=== PATIENT | male | born 1980 | race Caucasian/White ===

== ENCOUNTER 2021-04-25 12:02 | Emergency (ER) | payer OTHER, SELFPAY ==
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
[2021-04-25 12:08] VITALS: BP 127/81; PULSE 73; RESP 18; TEMP 36.8; O2SAT 99; BMI 21.6
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
[2021-04-25] MEDS: oxyCODONE HCl Immed Release 5 MG TABLET PO (13:46)
== END 2021-04-25 14:13 | disposition home or self-care (01) ==
PROVIDERS: Emergency Provider Emergency Medicine Emergency Medical Services; PCP Physician Assistant
DX: S43.102A Unspecified dislocation of left acromioclavicular joint, initial encounter (principal); M25.512 Pain in left shoulder; V27.4XXA Motorcycle driver injured in collision with fixed or stationary object in traffic accident, initial encounter; Y93.9 Activity, unspecified; Y92.410 Unspecified street and highway as the place of occurrence of the external cause; Y99.9 Unspecified external cause status
CPT/HCPCS: 73030; 99283; 99284

== ENCOUNTER → 2021-05-02 10:24 | Outpatient (BNVA) | payer OTHER, SELFPAY | PROVIDERS: Visit Provider Physician Assistant ==

== ENCOUNTER → 2021-06-19 11:25 | Outpatient (BNVA) | payer OTHER, SELFPAY | PROVIDERS: PCP Internal Medicine; Visit Provider Physician Assistant ==

== ENCOUNTER 2021-06-24 14:00 | Outpatient (RCR) | payer OTHER, SELFPAY ==
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
--- NOTE | 2021-07-11 15:50 | MHC.PT.DC ---
[facility] [place] Office [place] Office [place] Office [address] Ladi Castillo [address] [phone] F: [phone] F: [phone] F: [phone] F: [phone] Physical Therapy Discharge Report Diagnosis: dislocation of L acromioclavicular Date of Surgery: n/a Date of Evaluation: 05/13/21 Date of Discharge: 07/11/21 Treatments to Date: 11 Cancellations to Date: 3 No Shows to Date: 1 Discharge Status: Visit Non-compliance Discharge Summary: Pt no showed and cancelled his final 2 appointments. He has not reached out in almost 3 weeks therefore pt status unknown at this time and skilled PT is no longer indicated. Electronically signed by: Frances Ward, PT, DPT, ATC Please sign and return to therapist. Thank you for your referral.
== END 2021-07-11 15:51 | disposition home or self-care (01) ==
LOC: HO.PT 14:00
PROVIDERS: Visit Provider Physician Assistant
DX: S43.102D Unspecified dislocation of left acromioclavicular joint, subsequent encounter (principal)
CPT/HCPCS: 97110; 97140; 97161; 97530

== ENCOUNTER 2021-07-16 13:35 | Outpatient (REF) | payer OTHER, SELFPAY | END 2021-07-16 13:36 | disposition home or self-care (01) | LOC: HO.LAB 13:35 | PROVIDERS: Visit Provider Internal Medicine | DX: Z20.822 Contact with and (suspected) exposure to COVID-19 (principal) | CPT/HCPCS: C9803; U0003; U0005 ==

== ENCOUNTER 2021-07-25 13:36 | Emergency (ER) | payer OTHER, SELFPAY ==
[2021-07-25 14:35] VITALS: BP 119/77; PULSE 84; RESP 18; TEMP 36.6; O2SAT 99; BMI 21.0
[2021-07-25 19:52] LABS: Appearance Urine CLEAR; Color Urine YELLOW; Glucose Urine UA NEG (NEG); Leukocyte Esterase Urine NEG (NEG); Nitrite Urine NEG (NEG); Specific Gravity - Urine 1.025 (1.005-1.025); UACC Culture Trigger NO; Urine Blood 1+ (NEG); Urine Ketones 5 MG/DL (NEG); Urine Protein NEG (NEG-TRACE)
--- NOTE | 2021-07-25 19:58 | ECG_ITS ---
Test Reason : DEHYDRATION Blood Pressure : / mmHG Vent. Rate : 083 BPM Atrial Rate : 083 BPM P-R Int : 146 ms QRS Dur : 092 ms QT Int : 328 ms P-R-T Axes : 062 050 053 degrees QTc Int : 385 ms Normal sinus rhythm Minimal voltage criteria for LVH, may be normal variant ( Sokolow-Brito ) ST & T wave abnormality, consider lateral ischemia Abnormal ECG No previous ECGs available Referred By: Generic ED Physician Electronically Signed By:Cal Webb
--- NOTE | 2021-07-25 20:06 | ED_ITS ---
HPI - General Adult General Chief complaint: General Medical Stated complaint: DEHYDRATION Time Seen by Provider: 07/25/21 20:07 Source: patient Mode of arrival: ambulatory Limitations: no limitations History of Present Illness HPI narrative: 41-year-old male with COVID positive test results presents for dark urine and dehydration. Onset (ago): day(s) Radiation: non-radiation Severity: mild Severity scale (1-10): 4 Relieving factors: none Associated symptoms: cough, fever/chills, headaches, loss of appetite and malaise Treatments prior to arrival: none Related Data Previous Rx's Medication Instructions Recorded cyclobenzaprine 10 mg tablet 10 mg PO TID PRN #10 tab 04/25/21 oxycodone 5 mg tablet 5 mg PO Q6H PRN #10 tab 04/25/21 Allergies Allergy/AdvReac Type Severity Reaction Status Date / Time No Known Allergies Allergy Unverified 05/09/21 14:28 Review of Systems Review of Systems: Constitutional: positive Fever, positive Chills, positive fatigue, positive Malaise ENT/Mouth: positive sore throat, positive runny nose Eyes: No Discharge Cardiovascular: No Chest Pain, No SOB Respiratory: No Cough, No Sputum, No Wheezing, No Smoke Exposure, No Dyspnea Gastrointestinal: No Nausea, No Vomiting, No Diarrhea Genitourinary: no irregular bleeding, No Dysuria, No Urinary Frequency, No Hematuria, No Urinary Incontinence, No Urgency, No Flank Pain, Musculoskeletal: positive Myalgia Skin: No rash Neuro: Positive Headache Yes all other systems are reviewed and are negative PMFSH Past Medical History Attestation statement: The following information was validated with the patient. 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 Oriented X3. No acute distress. Eyes: Pupils equal, round and reactive to light. EOMI. Sclera nonicteric. ENT: Pharynx normal. Neck: Normal inspection. Neck supple. CVS: Normal heart rate and rhythm. Pulses normal. Respiratory: No respiratory distress. Breath sounds normal. Abdomen: Soft and nontender. Skin: Skin warm and dry. Normal skin color. Normal skin turgor. Extremities: No lower extremity edema. Gait well-balanced well coordinated. Neuro: No motor deficit. No sensory deficit. Cranial nerves 2-12 intact. Course Course Course Narrative: 41-year-old male COVID positive presents for dehydration and dark urine. Will order labs and resuscitate with fluids. Patient is alert oriented x4, appears nontoxic, speaking in complete sentences, even unlabored respirations, O2 saturation 99% on room air. Patient states to feel better after fluid resuscitation. Will discharge home with instructions for supportive measures. Patient verbalized understanding of and agrees to plan of care. Medical Decision Making MDM Narrative Medical decision making narrative: Dehydration, COVID-19, rhabdo Medical Records Medical records reviewed: Yes I reviewed the patient's medical records. Lab Data Lab results reviewed: Yes I reviewed the patient's lab results. Result diagrams: 07/25/21 20:42 07/25/21 20:42 Labs: Lab Results 07/25/21 07/25/21 07/25/21 Range/Units 19:44 20:42 20:42 WBC 3.6 L (4.8-10.8) X10*3/uL RBC 5.73 (4.60-5.80) X10*6/uL Hgb 16.0 (14.0-18.0) g/dl Hct 46.4 (42.0-52.0) % MCV 81.0 (80.0-98.0) fL MCH 27.9 (27.0-33.0) pg MCHC 34.5 (31.0-36.0) g/dl RDW 12.1 (11.0-16.0) % Plt Count 162 (160-400) X10*3/uL MPV 10.6 (9.4-12.4) fL Immature Gran % (Auto) 0.6 H (0.0-0.4) % Neut % (Auto) 61.0 (45-73) % Lymph % (Auto) 22.7 (20-40) % [place] % (Auto) 15.1 H (2-11) % Eos % (Auto) 0.3 (0-4) % Baso % (Auto) 0.3 (0-2) % Lymph # (Auto) 0.8 L (1.2-4.9) X10*3/uL [place] # (Auto) 0.5 (0.1-1.2) X10*3/uL Eos # (Auto) 0.0 (0.0-0.4) X10*3/uL Baso # (Auto) 0.0 (0.0-0.2) X10*3/uL Abs Immat Gran (auto) 0.02 (0.00-0.03) X10*3/uL Absolute Neuts (auto) 2.2 (2.0-8.3) x10*3/uL Absolute Nucleated RBC 0.000 (0.0-0.012) X10*3/uL Nucleated RBC % (auto) 0.0 (0.0-0.2) /100WBC Sodium 136 (135-145) mmol/L Potassium 3.8 (3.3-5.1) mmol/L Chloride 103 (96-108) mmol/L Carbon Dioxide 26 (22-29) mmol/L Anion Gap 11 L (12-20) BUN 11 (9-16) mg/dL Creatinine 0.84 (0.5-1.4) mg/dL Estim Creat Clear Calc 120.5 Estimated GFR > 60 Random Glucose 96 (60-115) mg/dL Calcium 8.6 (8.4-10.2) mg/dL Total Bilirubin 0.3 (0.0-1.0) mg/dL AST 21 (5-37) U/L ALT 29 (0-40) U/L Alkaline Phosphatase 137 H (39-117) U/L Total Creatine Kinase 58 (38-174) U/L Total Protein 6.5 (6.5-8.0) g/dL Albumin 4.0 (3.5-5.0) g/dL Urine Color YELLOW Urine Appearance CLEAR Urine pH 6.0 (5.0-8.0) Ur Specific [place] 1.025 (1.005-1.025) Urine Protein NEG (NEG-TRACE) MG/DL Urine Glucose (UA) NEG (NEG) MG/DL Urine Ketones 5 (NEG) MG/DL Urine Blood 1+ H (NEG) Urine Nitrite NEG (NEG) Ur Leukocyte Esterase NEG (NEG) Urine RBC 0-2 (0) /HPF Urine WBC 0 (0-4) /HPF Ur Squamous Epith Cells TRACE /LPF Urine Bacteria TRACE /LPF Influenza Type A (PCR) (Negative) Influenza Type B (PCR) (Negative) RSV RNA Qual (PCR) (Negative) SARS-CoV-2 RNA (RT-PCR) (Negative) 07/25/21 07/25/21 Range/Units 20:42 20:42 WBC (4.8-10.8) X10*3/uL RBC (4.60-5.80) X10*6/uL Hgb (14.0-18.0) g/dl Hct (42.0-52.0) % MCV (80.0-98.0) fL MCH (27.0-33.0) pg MCHC (31.0-36.0) g/dl RDW (11.0-16.0) % Plt Count (160-400) X10*3/uL MPV (9.4-12.4) fL Immature Gran % (Auto) (0.0-0.4) % Neut % (Auto) (45-73) % Lymph % (Auto) (20-40) % [place] % (Auto) (2-11) % Eos % (Auto) (0-4) % Baso % (Auto) (0-2) % Lymph # (Auto) (1.2-4.9) X10*3/uL [place] # (Auto) (0.1-1.2) X10*3/uL Eos # (Auto) (0.0-0.4) X10*3/uL Baso # (Auto) (0.0-0.2) X10*3/uL Abs Immat Gran (auto) (0.00-0.03) X10*3/uL Absolute Neuts (auto) (2.0-8.3) x10*3/uL Absolute Nucleated RBC (0.0-0.012) X10*3/uL Nucleated RBC % (auto) (0.0-0.2) /100WBC Sodium (135-145) mmol/L Potassium (3.3-5.1) mmol/L Chloride (96-108) mmol/L Carbon Dioxide (22-29) mmol/L Anion Gap (12-20) BUN (9-16) mg/dL Creatinine (0.5-1.4) mg/dL Estim Creat Clear Calc Estimated GFR Random Glucose (60-115) mg/dL Calcium (8.4-10.2) mg/dL Total Bilirubin (0.0-1.0) mg/dL AST (5-37) U/L ALT (0-40) U/L Alkaline Phosphatase (39-117) U/L Total Creatine Kinase Cancelled (38-174) U/L Total Protein (6.5-8.0) g/dL Albumin (3.5-5.0) g/dL Urine Color Urine Appearance Urine pH (5.0-8.0) Ur Specific [place] (1.005-1.025) Urine Protein (NEG-TRACE) MG/DL Urine Glucose (UA) (NEG) MG/DL Urine Ketones (NEG) MG/DL Urine Blood (NEG) Urine Nitrite (NEG) Ur Leukocyte Esterase (NEG) Urine RBC (0) /HPF Urine WBC (0-4) /HPF Ur Squamous Epith Cells /LPF Urine Bacteria /LPF Influenza Type A (PCR) NEGATIVE (Negative) Influenza Type B (PCR) NEGATIVE (Negative) RSV RNA Qual (PCR) NEGATIVE (Negative) SARS-CoV-2 RNA (RT-PCR) POSITIVE A (Negative) ECG Data Attestation: I personally reviewed and interpreted this ECG as follows: Prior ECG tracings: available for review Interpretation: Vent. rate 83 BPM DE interval 146 ms QRS duration 92 ms QT/QTc 328/385 ms P-R-T axes 62 50 53 Normal sinus rhythm Minimal voltage criteria for LVH, may be normal variant ( Sokolow-Brito ) ST & T wave abnormality, consider lateral ischemia Abnormal ECG No previous ECGs available 25-JUL-2021 20:21:35 Discharge Plan Discharge Clinical Impression: Acute dehydration, COVID-19 Patient Disposition: Home, Self-Care Instructions: Covid-19 Viral Syndrome and Novel Coronavirus (ED) Hey/Ath, Dehydration (ED), COVID-19 (Coronavirus Disease 2019) (ED) Additional Instructions: Your evaluated for symptoms consistent with COVID-19. We gave you 1 L of fluids. Please encourage fluids Maintain social isolation for state and Federal guidelines. you are COVID-19 positive. Thank you for choosing this emergency department for evaluation. Please follow-up with primary care physician as needed. Return to the emergency department for any new, concerning, or worsening symptoms. Prescriptions: No Action cyclobenzaprine 10 mg tablet 10 mg PO TID PRN (Reason: muscle spasm) Qty: 10 RF: 0 oxycodone 5 mg tablet 5 mg PO Q6H PRN (Reason: pain) Qty: 10 RF: 0 Stand Alone Forms: Work/School Release Interventions: ED Discharge Assessment Last Done: 07/25/21 23:34 Discharge Date/Time: 07/25/21 23:35
[2021-07-25 20:13] LABS: Bacteria Urine TRACE /LPF; RBC Urine 0-2 /HPF (0); Squamous Epithelial Cell Urine TRACE /LPF; WBC Urine 0 /HPF (0-4)
[2021-07-25 20:47] LABS: MANUAL DIFF FLAG NO
[2021-07-25 20:48] LABS: Basophils Percent Auto 0.3 % (0-2); Eosinophils Percent Auto 0.3 % (0-4); Hematocrit 46.4 % (42.0-52.0); Imm Gran Abs Auto 0.02 X10*3/uL (0.00-0.03); Imm Gran Pct Auto 0.6 % (0.0-0.4); Lymphocytes Absolute Auto 0.8 X10*3/uL (1.2-4.9); Lymphocytes Percent Auto 22.7 % (20-40); Mean Corpuscular HGB Conc 34.5 g/dl (31.0-36.0); Mean Corpuscular Hemoglobin 27.9 pg (27.0-33.0); Mean Platelet Volume 10.6 fL (9.4-12.4); Monocytes Absolute Auto 0.5 X10*3/uL (0.1-1.2); Monocytes Percent Auto 15.1 % (2-11); Neutrophils Absolute Auto 2.2 x10*3/uL (2.0-8.3); Platelet Count 162 X10*3/uL (160-400); Red Blood Count 5.73 X10*6/uL (4.60-5.80); Red Cell Distribution Width 12.1 % (11.0-16.0); White Blood Count 3.6 X10*3/uL (4.8-10.8)
[2021-07-25 21:08] LABS: Alanine Aminotransferase 29 U/L (0-40); Alkaline Phosphatase 137 U/L (39-117); Anion Gap 11 (12-20); Aspartate Amino Transferase 21 U/L (5-37); Bilirubin Total 0.3 mg/dL (0.0-1.0); Blood Urea Nitrogen 11 mg/dL (9-16); Calcium 8.6 mg/dL (8.4-10.2); Carbon Dioxide 26 mmol/L (22-29); Chloride 103 mmol/L (96-108); Creatinine Clr Calc Pharmacy 120.5; Estimated Glomerular Filt Rate > 60; Glucose Random 96 mg/dL (60-115); Potassium 3.8 mmol/L (3.3-5.1); Sodium 136 mmol/L (135-145); Total Protein 6.5 g/dL (6.5-8.0)
[2021-07-25] MEDS: 0.9 % Sodium Chloride 1,000 ML 999 ML IVCONT (21:36)
[2021-07-25 21:37] LABS: Influenza A PCR NEGATIVE (Negative); Influenza B PCR NEGATIVE (Negative); Resp Syncy Virus RNA Qual PCR NEGATIVE (Negative); SARS COV2 PCR INHOUSE POSITIVE (Negative)
== END 2021-07-25 23:35 | disposition home or self-care (01) ==
PROVIDERS: Nurse Practitioner Family; Emergency Provider Emergency Medicine Emergency Medical Services; PCP Physician Assistant
DX: U07.1 COVID-19 (principal); E86.0 Dehydration; Z79.899 Other long term (current) drug therapy
CPT/HCPCS: 0241U; 36415; 80053; 81001; 81003; 82550; 85025; 93005; 96360; 99284

== ENCOUNTER 2022-06-06 17:36 | Emergency (ER) | payer OTHER, SELFPAY ==
[2022-06-06 18:22] VITALS: BP 126/64; PULSE 90; RESP 18; TEMP 37.4; O2SAT 98; BMI 19.9
[2022-06-06 19:13] LABS: Influenza A PCR NEGATIVE (Negative); Influenza B PCR NEGATIVE (Negative); Resp Syncy Virus RNA Qual PCR NEGATIVE (Negative); SARS COV2 PCR INHOUSE POSITIVE (Negative)
--- NOTE | 2022-06-06 19:49 | ED.GENADULT ---
HPI - General Adult General Chief complaint: Fever Stated complaint: congestion in chest, needs covid test Time Seen by Provider: 06/06/22 19:42 Source: patient Mode of arrival: ambulatory Limitations: no limitations History of Present Illness HPI narrative: Patient is a 42 year old assigned male at with no reported medical history presenting to the emergency department today with a cough, fever, and body aches. Patient states that starting yesterday he began to have a cough, body aches, and a fever. Patient denies any dizziness, lightheadedness, abdominal pain, nausea, vomiting, chills, blurry vision, double vision, loss of vision, chest pain, difficulty breathing, shortness of breath, back pain, night sweats, pain with urination, increased urinary frequency, increased urinary urgency, blood in his urine or stool, syncope or a near syncopal episode, recent trauma or falls, bowel incontinence, bladder incontinence, bowel retention, bladder retention, or any other complaints at this time. Onset (ago): day(s) (1) Severity: mild Relieving factors: none Exacerbating factors: none Associated symptoms: cough and fever/chills Treatments prior to arrival: none Related Data Home Medications Medication Instructions Recorded Confirmed No Known Home Meds 09/17/21 01/30/22 Allergies Allergy/AdvReac Type Severity Reaction Status Date / Time No Known Allergies Allergy Verified 01/30/22 08:37 Review of Systems Constitutional: Constitutional: Reports no additional constitutional complaints, Reports body ache(s), Denies chills, Reports fever(s) and Denies night sweats Eyes: Eyes: Reports no additional eye complaints, Denies blurry vision, Denies change in vision, Denies diplopia, Denies eye discharge, Denies loss of vision and Denies eye pain ENT: Denies dizziness Cardiovascular: Cardiovascular: Reports no additional cardiovascular complaints, Denies chest pain, Denies lightheadedness, Denies Loss of Consciousness and Denies dyspnea Respiratory: Respiratory: Reports no additional respiratory complaints, Reports cough and Denies dyspnea Gastrointestinal: Gastrointestinal: Reports no additional gastrointestinal complaints, Denies abdominal pain, Denies melena, Denies hematochezia, Denies change in bowel habits and Denies change in stool character Genitourinary: Genitourinary: Reports no additional male genitourinary complaints, Denies hematuria, Denies oliguria, Denies difficulty urinating, Denies dysuria, Denies urinary frequency, Denies urinary hesitancy, Denies urinary incontinence and Denies urinary urgency Musculoskeletal: Musculoskeletal: Reports no additional musculoskeletal complaints, Denies numbness and Denies tingling Neurologic: Denies dizziness, Denies loss of vision, Denies numbness and Denies tingling Psychiatric: Psychiatric: Reports no additional psychiatric complaints Endocrine: Endocrine: Reports no additional endocrine complaints Hematologic/Lymphatic: Hematologic/Lymphatic: Reports no additional hematologic/lymphatic complaints Allergic/Immunologic: Allergic/Immunologic: Reports no additional allergic/immunologic complaints [facility] Past Medical History Attestation statement: The following information was validated with the patient. Source: old records reviewed Medical History Leukopenia No pertinent past medical history Pure hypercholesterolemia Surgical History No pertinent past surgical history Family History Family History Mother No problems noted. Father No problems noted. 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 Current occupational exposures/hazards: No Cognitive needs: No Hearing needs: No Vision needs: No Physical Exam ED Vital Signs: Vital Signs - 24 hr 06/06/22 18:22 Temperature 99.4 F Pulse Rate 90 Respiratory Rate 18 Blood Pressure 126/64 Pulse Oximetry 98 Oxygen Delivery Method Room Air BMI result Body Mass Index 19.9 Const General: cooperative, no acute distress, alert and awake Nutritional Appearance: well nourished Orientation/consciousness: patient oriented x3 Limitations: no limitations HENMT Head: Yes normal to inspection and Yes atraumatic Ears: hearing grossly normal bilaterally and external ears normal General nose exam: Normal external nose present, no nasal discharge noted and no epistaxis Face and sinus: Yes normal facial exam, No abrasion and No laceration Mouth: Normal oral and palatal mucosa present, no drooling and no muffled voice Eyes General: appearance normal, both eyes and all related structures Periorbital: periorbital findings normal Eyelids: Yes eyelids normal Conjunctivae: conjunctivae normal Pupils: Equal, round and reactive pupils present EOM: EOMs intact bilaterally Neck Neck: Yes normal visual inspection, Yes full ROM and Yes no lymphadenopathy Chest Chest palpation & inspection: normal inspection of the chest Resp Effort & Inspection: normal respiratory effort and able to speak in complete sentences Auscultation: clear to auscultation bilaterally Cardio Rate: regular rate Rhythm: regular rhythm GI Inspection: Yes normal to inspection Neuro General: patient oriented x3 and moves all extremities Cranial nerves: Yes Equal, round and reactive pupils present Cognition (Neuro): normal cognition Motor exam (neuro): 5/5 motor strength present throughout Sensory Exam: Normal double simultaneous stimulation for sensation Coordination: [id number] test normal Extrem General: Yes normal to inspection, Yes full ROM and Yes capillary refill normal Psych Appearance: grossly normal Mental Status: mental status grossly normal Affect: normal affect Attitude: cooperative Thought process: Normal thought process present Thought content: Normal thought content present Insight: Good insight present (Psych) Medical Decision Making MDM Narrative Medical decision making narrative: Patient is a 42 year old assigned male at with no reported medical history presenting to the emergency department today with a cough, fever, and body aches. Patient's physical exam was unremarkable. Patient's rapid COVID-19 test was positive. I explained my physical exam findings as well as all test results to the patient. I answered all questions asked by the patient. I stressed the importance of the patient taking his medication as prescribed. I stressed the importance of the patient following up with his primary care provider. I stressed the importance of the patient returning to the emergency department immediately if his symptoms were to worsen or if he were to develop any dizziness, shortness of breath, difficulty breathing, chest pain, blurry vision, loss of vision, nausea, vomiting, abdominal pain, fever, chills, back pain, or any other complaints. Patient verbalized agreement and understanding with this treatment plan and discharge. Medical Records Medical records reviewed: Yes I reviewed the patient's medical records. Lab Data Lab results reviewed: Yes I reviewed the patient's lab results. Labs: Lab Results 06/06/22 Range/Units 18:31 Influenza Type A (PCR) NEGATIVE (Negative) Influenza Type B (PCR) NEGATIVE (Negative) RSV RNA Qual (PCR) NEGATIVE (Negative) SARS-CoV-2 RNA (RT-PCR) POSITIVE A (Negative) Discharge Plan Discharge Clinical Impression: COVID-19 Patient Disposition: Home, Self-Care Instructions: COVID-19 (Coronavirus Disease 2019) (ED) Additional Instructions: Follow up with your primary care provider. Return to the emergency department immediately if your symptoms worsen or if you develop any dizziness, shortness of breath, difficulty breathing, chest pain, blurry vision, loss of vision, nausea, vomiting, abdominal pain, fever, chills, back pain, or any other complaints. Prescriptions: No Action No Known Home Meds [place]: [facility] [place] [facility] [place] (Call to establish and follow up with a primary care provider. If you already have a primary care provider, please follow up with them. ) [facility] [place] [facility] [place] (Call to establish and follow up with a primary care provider. If you already have a primary care provider, please follow up with them. ) [facility] [place] [facility] [Provider Group] (Call to establish and follow up with a primary care provider. If you already have a primary care provider, please follow up with them. ) Stand Alone Forms: Work/School Release Interventions: ED Discharge Assessment Last Done: 06/06/22 19:57 Discharge Date/Time: 06/06/22 20:00 Print Language: Icelandic
== END 2022-06-06 20:00 | disposition home or self-care (01) ==
PROVIDERS: Physician Assistant Medical; Emergency Provider Student in an Organized Health Care Education/Training Program
DX: U07.1 COVID-19 (principal); R50.9 Fever, unspecified; Z79.899 Other long term (current) drug therapy; F17.210 Nicotine dependence, cigarettes, uncomplicated; Z71.6 Tobacco abuse counseling
CPT/HCPCS: 0241U; 99282; 99283

== ENCOUNTER 2022-08-04 09:35 | Outpatient (REF) | payer OTHER, SELFPAY ==
[2022-08-04 10:39] LABS: COVID-19 Test Negative (Negative); IDNOW Serial# 16C4AD1C
== END 2022-08-04 09:36 | disposition home or self-care (01) ==
LOC: HO.LAB 09:35
PROVIDERS: Visit Provider Internal Medicine
DX: Z20.822 Contact with and (suspected) exposure to COVID-19 (principal)
CPT/HCPCS: 87635; C9803

== ENCOUNTER 2023-01-14 14:05 | Outpatient (REF) | payer OTHER, SELFPAY ==
[2023-01-14 14:14] LABS: MANUAL DIFF FLAG NO
[2023-01-14 15:31] LABS: Basophils Absolute Auto 0.1 X10*3/uL (0.0-0.2); Basophils Percent Auto 1.1 % (0-2); Eosinophils Absolute Auto 0.3 X10*3/uL (0.0-0.4); Eosinophils Percent Auto 3.7 % (0-4); Hematocrit 49.3 % (42.0-52.0); Hemoglobin 16.6 g/dl (14.0-18.0); Imm Gran Abs Auto 0.04 X10*3/uL (0.00-0.03); Imm Gran Pct Auto 0.5 % (0.0-0.4); Lymphocytes Absolute Auto 2.1 X10*3/uL (1.2-4.9); Lymphocytes Percent Auto 24.4 % (20-40); Mean Corpuscular HGB Conc 33.7 g/dl (31.0-36.0); Mean Corpuscular Hemoglobin 28.1 pg (27.0-33.0); Mean Corpuscular Volume 83.6 fL (80.0-98.0); Mean Platelet Volume 10.1 fL (9.4-12.4); Monocytes Absolute Auto 0.6 X10*3/uL (0.1-1.2); Monocytes Percent Auto 7.5 % (2-11); Neutrophils Absolute Auto 5.4 x10*3/uL (2.0-8.3); Neutrophils Percent Auto 62.8 % (45-73); Platelet Count 258 X10*3/uL (160-400); Red Cell Distribution Width 12.6 % (11.0-16.0); White Blood Count 8.6 X10*3/uL (4.8-10.8)
[2023-01-14 16:18] LABS: Alanine Aminotransferase 17 U/L (0-40); Albumin Level 4.1 g/dL (3.5-5.0); Alkaline Phosphatase 122 U/L (39-117); Anion Gap 12 (12-20); Aspartate Amino Transferase 15 U/L (5-37); Bilirubin Total 1.5 mg/dL (0.0-1.0); Blood Urea Nitrogen 11 mg/dL (9-16); Calcium 9.3 mg/dL (8.4-10.2); Carbon Dioxide 24 mmol/L (22-29); Chloride 109 mmol/L (96-108); Cholesterol 196 mg/dL; Estimated Glomerular Filt Rate > 60; Glucose Fasting 99 mg/dL (60-99); HDL Cholesterol 54 mg/dL; LDL Cholesterol Calculated 121 mg/dl; Potassium 4.1 mmol/L (3.3-5.1); Sodium 141 mmol/L (135-145); Triglycerides 108 mg/dL
[2023-01-14 16:36] LABS: Vitamin D 25-OH Total 27.1 ng/mL (>30)
== END 2023-01-14 14:06 | disposition home or self-care (01) ==
LOC: HO.LAB 14:05
PROVIDERS: PCP Internal Medicine; Visit Provider Internal Medicine
DX: D64.9 Anemia, unspecified (principal); E78.5 Hyperlipidemia, unspecified; E55.9 Vitamin D deficiency, unspecified; S43.102A Unspecified dislocation of left acromioclavicular joint, initial encounter
CPT/HCPCS: 36415; 80053; 80061; 82306; 85025

== ENCOUNTER 2023-02-01 18:08 | Emergency (ER) | payer OTHER, SELFPAY ==
[2023-02-01 18:54] VITALS: BP 115/76; PULSE 68; RESP 19; TEMP 37; O2SAT 100; BMI 19.3
--- NOTE | 2023-02-01 18:57 | ED_ITS ---
HPI - General Adult General Chief complaint: Wound/Laceration Stated complaint: Right thumb injury Time Seen by Provider: 02/01/23 21:50 Source: patient Mode of arrival: ambulatory Limitations: no limitations History of Present Illness HPI narrative: 42-year-old vwihw-jddl-nwiyfxwe male presents the ER for evaluation of a laceration to his right thumb, sustained with a straight razor just prior to arrival. Patient states he was cutting his hair, but the razor in a bucket to rinse it when he accidentally cut his finger. He had immediate bleeding and pain. He applied pressure with a paper towel and came right here. Is unsure how deep the wound is. He is unsure when his last tetanus shot. He denies any other injuries. He denies any numbness, weakness, tingling of the extremity. complaint: Laceration of the right thumb Onset (ago): hour(s) Location: right and upper extremity Radiation: non-radiation Severity: mild Quality: aching Pain Consistency: now resolved Relieving factors: other (Direct pressure and bandage) Associated symptoms: denies other symptoms Treatments prior to arrival: other (Bandage) Related Data Previous Rx's Medication Instructions Recorded cholecalciferol (vitamin D3) 25 25 mcg PO DAILY 90 days #90 caps 01/14/23 mcg (1,000 unit) capsule Allergies Allergy/AdvReac Type Severity Reaction Status Date / Time No Known Allergies Allergy Verified 02/02/23 10:25 Review of Systems Review of Systems: Yes all other systems are reviewed and are negative PMFSH Past Medical History Medical History Leukopenia No pertinent past medical history Pure hypercholesterolemia Surgical History No pertinent past surgical history Family History Family History Mother No problems noted. Father No problems noted. 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 Oriented X3. No acute distress. HEENT: normal inspection CVS: Normal heart rate and rhythm. Pulses normal. Respiratory: No respiratory distress. Skin: Skin warm and dry. Normal skin color. Normal skin turgor. No rashes. Extremities: Right thumb with a superficial, linear laceration to the medial aspect starting just distal to the nail extending down to the base of the thumb, no active bleeding. Wound is closed and well approximated. Normal flexion extension of the thumb. No nail involvement. Neuro: Oriented X 3. Grossly normal Course Course Course Narrative: RME: 42 yold male presents to the ED for right thumb laceration by garibay blade. Not uptdoate with tetanus. Medications Administered Discontinued Medications Generic Name Dose Route Start Last Admin Trade Name Freq PRN Reason Stop Dose Admin Diphtheria/Tetanus/Acell Pertussis 0.5 ml 02/01/23 21:50 02/01/23 22:22 Diphth,Pertus(Acell),Tet Adult 0.5 Ml Syringe IM 02/01/23 21:51 0.5 ml .ONCE ONE Administration Procedures Laceration Laceration 1: Site: hand Side (If applicable): right Size (cm): 3 Description: linear Depth: simple, single layer Pre-repair: irrigated extensively Skin layer closed with: other (Skin glue and Steri-Strips) Medical Decision Making Medical Decision Making MDM Narrative: 42-year-old eyqat-feiw-zxeapxaj male presents to the ER for evaluation of a superficial laceration to his right thumb, cut with a straight razor just prior to arrival. Tdap status unknown so this was administered in the ER. Patient was able to apply pressure and stop the bleeding. The wound is well- approximated and appears to be very superficial. exofin skin glue was used to keep the wound closed along with Steri-Strips. Wound care was discussed with the patient he is stable for discharge home Differential Diagnosis Differential Diagnoses: The differential diagnosis associated with the presentation includes Superficial laceration, deep laceration, no evidence of tendon involvement Tests considered The following testing was considered but not selected: Considered x-ray of the thumb to rule out open fracture however given his exam this was deferred Prescription Management I considered prescription management with: Pain Medication and Antibiotic Critical Care Time Critical Care Time Critical Care Time: No Discharge Plan Discharge Clinical Impression: Laceration Patient Disposition: Home, Self-Care Instructions: Finger Laceration (ED) Additional Instructions: laceration seemed to be superficial with no bleeding skin glue and steri strips were used to keep the wound closed. they will come off on their own, usually in a week. do not peel them off do not get wet for 24 hours then you can briefly get wet and pat dry Prescriptions: No Action cholecalciferol (vitamin D3) 25 mcg (1,000 unit) capsule 25 mcg PO DAILY 90 Days Qty: 90 1RF Interventions: ED Discharge Assessment Last Done: 02/01/23 22:32 Discharge Date/Time: 02/01/23 22:32
[2023-02-01 22:00] VITALS: BP 120/76; PULSE 62; RESP 16; O2SAT 98
== END 2023-02-01 22:32 | disposition home or self-care (01) ==
PROVIDERS: Emergency Provider Emergency Medicine Emergency Medical Services; PCP Internal Medicine
DX: S61.011A Laceration without foreign body of right thumb without damage to nail, initial encounter (principal); W26.9XXA Contact with unspecified sharp object(s), initial encounter; Y93.9 Activity, unspecified; Y92.9 Unspecified place or not applicable; F17.210 Nicotine dependence, cigarettes, uncomplicated; Y99.9 Unspecified external cause status; Z71.6 Tobacco abuse counseling; Z23 Encounter for immunization; Z79.899 Other long term (current) drug therapy
CPT/HCPCS: 12002; 90471; 90715; 99284

== ENCOUNTER 2023-02-02 09:29 | Outpatient (AMB) | payer OTHER, SELFPAY ==
[2023-02-02 10:11] VITALS: BP 120/80; BMI 19.1
--- NOTE | 2023-02-02 10:11 | MHC.PC.OV ---
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 Accompanied by: Self / Same As Patient Allergies No Known Allergies Allergy (Verified 02/02/23 10:25) Medication List - Last Reconciled 02/02/23 by Joseline Villa MD cholecalciferol (vitamin D3) 25 mcg PO DAILY 90 days Tobacco use date assessed: 02/02/23 Dental Screening Dental Screen Date: 02/02/23 Did you have a dental visit in the last 12 months?: Yes Did you have a dental problem in the last 6 months where you did not have access to dental care?: No Was dental information given to patient?: Patient has dentist HPI HPI Comments History of Present Illness Details This is a 42-year-old male that comes for his physical exam. He has no acute complaints. No chest pain or shortness of breath. Was advised to quit smoking. [facility] Medical History Leukopenia No pertinent past medical history Pure hypercholesterolemia Surgical History No pertinent past surgical history Family History Mother No problems noted. Father No problems noted. 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 1. Little interest or pleasure in doing things: not at all 2. Feeling down, depressed, or hopeless: not at all 3. Trouble falling or staying asleep, or sleeping too much: not at all 4. Feeling tired or having little energy: not at all 5. Poor appetite or overeating: not at all 6. Feeling bad about yourself - or that you are a failure or have let yourself or your family down: not at all 7. Trouble concentrating on things, such as reading the newspaper or watching television: not at all 8. Moving or speaking so slowly that other people could have noticed. Or the opposite - being so fidgety or restless that you have been moving around a lot more than usual: not at all 9. Thoughts that you would be better off or of hurting yourself in some way: not at all Total score: 0 Depression Screening Interpretation: Negative 07717 - PHQ-9 Billing: Yes Source: Developed by Drs. Davie Orta, Marlene Jose, Brendon Mera and colleagues, with an educational aakash from [employer]. Thrive Questionnaire Date Thrive assessed: 02/02/23 I am a: Patient What is your living situation today?: I have a steady place to live Within the past 12 months, did the food you bought not last and you didn't have the money to get more?: Never true Within the past 12 months, did you worry whether your food would run out before you got money to buy more?: Never true Do you have trouble paying for medicines?: No Do you have trouble getting transportation to medical appointments?: No Do you have trouble paying your heating and electricity bill?: No Do you have trouble taking care of your child, family member or friend?: No Do you have trouble with day-to-day activities such as bathing, preparing meals, shopping, managing finances, etc.?: No Are you currently unemployed and looking for a job?: No Are you interested in more education?: No Please select the resources that you would like help with: None Currently or been in a relationship where the following occur: no concerns reported AUDIT C Alcohol Use Questionnaire (AUDIT-C) 1. How often do you have a drink containing alcohol?: 2-4 times a month 2. How many drinks containing alcohol do you have on a typical day when you are drinking?: 3 or 4 3. How often do you have six or more drinks on one occasion?: Never Total Score: 3 Score Reviewed/Action Taken: No JESSICA-7 AMB Questionnaire JESSICA-7 Date JESSICA - 7 assessed: 02/02/23 Feeling nervous, anxious, or on edge: 0 = Not at all Not being able to stop or control worryin = Not at all Worrying too much about different things: 0 = Not at all Trouble relaxin = Not at all Being so restless that it is hard to sit still: 0 = Not at all Becoming easily annoyed or irritable: 0 = Not at all Feeling afraid as if something awful might happen: 0 = Not at all Total JESSICA-7 score (0-4 normal; 5-9 mild; 10-14 moderate; 15-21 severe): 0 Source: Developed by Drs. Davie Orta, Marlene Jose, Brendon Mera and colleagues, with an educational aakash from [employer]. JESSICA-7 Assessment Billing JESSICA-7 Assessment Tool: JESSICA-7 Assessment 49223 Review of Systems Const All systems reviewed & are unremarkable except as noted in HPI and below Eyes Reports no additional complaints, Denies change in vision and Denies other visual disturbances Card Denies chest pain at rest, Denies chest pain with activity, Denies edema, Denies irregular heart rhythm, Denies claudication, Denies dyspnea, Denies dyspnea on exertion, Denies orthopnea, Denies paroxysmal nocturnal dyspnea and Denies slow heart rate Resp Denies cough, Denies dyspnea and Denies dyspnea on exertion GI Denies abdominal pain, Denies change in bowel habits, Denies excessive flatus, Denies nausea and Denies vomiting Denies urinary hesitancy, Denies urinary incontinence and Denies urinary urgency Musc Denies abnormal gait, Denies atrophy, Denies deformity and Denies limited range of motion Skin/Breast Denies bleeding lesions, Denies changing lesions and Denies rash Neuro Denies abnormal gait and Denies lack of coordination Physical exam (Primary Care) Vital Signs: Last Vital Signs BP 120/80 02/02/23 10:11 BMI result Body Mass Index 19.1 Tobacco/Smoking Status: Tobacco use Status Tobacco use date assessed 02/02/23 02/02/23 10:14 Patient Tobacco Use Status Current everyday Tobacco 02/02/23 10:14 Tobacco use type Cigarette 02/02/23 10:14 e-Cigarette/Vaping Use Never Used 02/02/23 10:14 PHQ-9: PHQ-9 Score PHQ-9: Total score 0 02/02/23 10:14 Depression Screening Interpretation: Negative Thrive Assessment: Date of Thrive Assessment Date Thrive assessed 02/02/23 02/02/23 10:14 Currently or been in a relationship where the following occur: no concerns reported Const Orientation/consciousness: patient oriented x3 HENMT Head: Yes normal to inspection, Yes normocephalic and Yes atraumatic Ears: external ears normal Eyes General: appearance normal, both eyes and all related structures Eyelids: Yes eyelids normal Conjunctivae: conjunctivae normal Neck Neck: Yes normal visual inspection and Yes supple Resp Effort & Inspection: normal respiratory effort Auscultation: clear to auscultation bilaterally Cardio Jugular venous distension: no JVD Rate: regular rate Rhythm: regular rhythm Heart sounds: S1 normal heart sound present and S2 normal heart sound present GI Inspection: Yes normal to inspection Palpation (GI): Soft to palpation and nontender Auscultation: normal bowel sounds Skin General skin exam: no rashes or lesions noted Neuro General: patient oriented x3 and no focal motor deficits Extrem General: Yes full ROM Psych Appearance: grossly normal Assessment and Plan Assessment & Plan (1) Physical exam: Code(s): Z00.00 - Encounter for general adult medical examination without abnormal findings Plan: Repeat in a year Coding Level of Care Code Est Pt Prev Care 40-64y(73985) Diagnoses Physical exam Z00.00 Additional Codes JESSICA-7 Assessment Billing - JESSICA-7 Assessment Tool: JESSICA-7 Assessment 68852 ([id number]) Time Spent (min) 30
== END 2023-02-02 10:43 | disposition home or self-care (01) ==
LOC: HO.HMGH 09:30
PROVIDERS: Visit Provider Internal Medicine
DX: Z00.00 Encounter for general adult medical examination without abnormal findings (principal)
CPT/HCPCS: 99396

== ENCOUNTER 2023-05-07 14:31 | Observation (INO) | payer OTHER, SELFPAY ==
--- NOTE | ~2023-05-07 | CT_ITS ---
EXAMINATION: CT ANGIOGRAM OF THE HEAD CT ANGIOGRAM OF THE NECK CLINICAL INFORMATION: Off balance with change in speech. COMPARISON: MRI scan of the brain earlier 05/08/[address] scan of the head 05/07/2023. TECHNIQUE: Test bolus series followed by intravenous administration 70 mL of Omnipaque 350. Helical imaging was performed in the axial plane from the mediastinum to the skull vertex. The degree of stenosis is based off NASCET criteria. The data was processed at the cath lab radiological technologist workstation for generation of MIP images. Three-dimensional volume rendered reformatted images were also generated at an offline 3-D workstation. This CT examination was performed using dose optimization techniques as appropriate, variously including the following: *Automated exposure control *Adjustment of mA and/or kV according to patient size (this includes techniques or standardized protocols for targeted exams where dose is matched to indication/reason for exam; i.e. extremities or head) *Use of iterative reconstruction technique DLP: 1534 mGy-cm. FINDINGS: CT Head: There is no evidence of acute intracranial hemorrhage or territorial infarction. No abnormal mass-effect or midline shift is seen. [place] to white matter differentiation is well preserved. No extra-axial fluid collections are identified. There is no abnormal enhancement. The ventricles are normal in size. There is no abnormal attenuation within the brain parenchyma. The osseous structures and soft tissues are normal. The mastoid air cells are well-aerated. There is opacification in the right maxillary sinus. CTA Neck: There is a classic configuration of the arch of the aorta. The great vessels of the neck are widely patent. The subclavian arteries appear normal bilaterally. The common carotid arteries have normal caliber. The carotid bifurcations bilaterally appear normal. The internal carotid arteries in the neck bilaterally have uniform and normal caliber. The origins of both vertebral arteries are well seen and appear normal. Both vertebral arteries are widely patent and demonstrate good opacification throughout their cervical course. The left vertebral artery is slightly dominant. Nonvascular: The visualized upper lung alas are well-aerated. The thyroid gland is normal. There is no cervical lymphadenopathy. The study demonstrates moderately prominent parotid glands bilaterally. There is also mild prominence of the submandibular glands bilaterally. There is no significant spondylosis or facet arthropathy. CTA Head: In the anterior circulation, the distal internal carotid arteries within the neck appear normal. The intracranial internal carotid arteries and their bifurcations appear normal. The middle and anterior cerebral arteries bilaterally demonstrate normal caliber with no evidence of focal stenosis, aneurysm or vascular malformation. There is normal arborization of the middle cerebral artery branches. The anterior communicating artery is normal. In the posterior circulation, the left vertebral artery is dominant. The vertebral arteries intradurally have uniform caliber. The basilar artery appears normal. There is a origin of the right posterior cerebral artery. There is a common origin of the right superior cerebellar artery and P1 segment of the right posterior cerebral artery off the basilar artery, a normal variant. The venous sinuses opacify normally. CT/CT angio head neck IMPRESSION: CT Head and Neck: 1. There are no acute bleeds or infarcts. There are no masses or areas of abnormal enhancement. 2. There is mild opacification in the right maxillary sinus. 3. The bilateral parotid and submandibular glands are moderately prominent. Correlate clinically. CT Head and Neck: 1. There are no flow-limiting there are no flow-limiting stenoses in the upper thoracic and cervical vascular structures. 2. Intracranially there are no focal stenoses, aneurysms or vascular malformations.
--- NOTE | ~2023-05-07 | CT_ITS ---
EXAMINATION: CT HEAD WITHOUT CONTRAST CLINICAL INFORMATION: Slurred speech. On balance. COMPARISON: None available. TECHNIQUE: Contiguous axial imaging was performed from the skull base to vertex without intravenous administration of contrast. This CT examination was performed using dose optimization techniques as appropriate, variously including the following: *Automated exposure control *Adjustment of mA and/or kV according to patient size (this includes techniques or standardized protocols for targeted exams where dose is matched to indication/reason for exam; i.e. extremities or head) *Use of iterative reconstruction technique DLP: 622 mGy-cm FINDINGS: There is no acute intra-axial, extra-axial bleed, masses or midline shift. There is no acute infarction in evolution. There is no edema. The reyes to white matter differentiation is maintained normal. The lateral ventricles are symmetrical in size and configuration without enlargement. Bone windows reveal no calvarial abnormality. There is mild mucoperiosteal thickening right maxillary sinus. Rest of the paranasal sinuses and mastoid air cells are well-aerated. CT/CT head/brain wo IV con IMPRESSION: No acute intracranial process seen
--- NOTE | ~2023-05-07 | MR_ITS ---
EXAMINATION: MRI OF THE BRAIN WITHOUT CONTRAST CLINICAL INFORMATION: Slurred speech. COMPARISON: CT scan of the head 05/07/2023. TECHNIQUE: MRI of the brain was obtained using routine sequences without contrast. FINDINGS: No diffusion abnormalities are identified to suggest an acute or subacute infarct. No mass effect or midline shift is seen. The ventricles and sulci are normal in size. There are a few foci of increased T2 and FLAIR signal in the periventricular and subcortical white matter, which are nonspecific and may be consistent with sequelae of migraine or vasculitis. Chronic microvascular ischemic changes may also have this appearance. No extra-axial fluid collections are seen. The brainstem and cerebellum are normal. No pathologic magnetic susceptibility artifact is identified on the gradient refocused acquisition. The craniovertebral junction, marrow signal, and midline structures are normal. The major intracranial flow-voids at the level of the [place] are preserved. The dural venous sinus flow-voids are maintained. The mastoid air cells are well-aerated. There is mild mucoperiosteal thickening in the inferior right maxillary sinus. The parotid glands are prominent bilaterally. MR/MR head/brain wo con IMPRESSION: 1. There are no acute bleeds or infarcts. No masses are demonstrated. 2. There are nonspecific white matter changes as described above. 3. The mastoid air cells are well-aerated. There is mild mucoperiosteal thickening in the inferior right maxillary sinus.
[2023-05-07 15:18] VITALS: BP 129/72; PULSE 65; RESP 16; TEMP 36.4; O2SAT 97; BMI 19.5
--- NOTE | 2023-05-07 15:18 | ED.GENADULT ---
HPI - General Adult General Chief complaint: Dizziness Stated complaint: dizziness Time Seen by Provider: 05/07/23 19:14 Source: patient, family, RN notes reviewed and old records reviewed Mode of arrival: ambulatory History of Present Illness HPI narrative: 43-year-old male with a past medical history of leukopenia, HLD, presenting to ED complaining of dizziness described as feeling off balance since 16:00 yesterday after waking (works nights). reports associated slurred speech at that time which resolved after a few minutes. Patient admits to continued dizziness. Denies other symptoms including headache, nausea /vomiting, vision change/ loss, numbness/ tingling, weakness. Denies taking anticoagulation. Related Data Previous Rx's Medication Instructions Recorded cholecalciferol (vitamin D3) 25 25 mcg PO DAILY 90 days #90 caps 01/14/23 mcg (1,000 unit) capsule Allergies Allergy/AdvReac Type Severity Reaction Status Date / Time No Known Allergies Allergy Verified 02/02/23 10:25 Review of Systems Review of Systems: Constitutional: No Fever, No Chills, No Fatigue, No Malaise ENT/Mouth: No Ear Pain, No Nasal Congestion, No sore throat, No Rhinorrhea, No Swallowing Difficulty Eyes: No Eye Pain, No Swelling, No Redness, No Foreign Body, No Discharge, No Vision Changes Cardiovascular: No Chest Pain, No SOB, No Edema, No Palpitations Respiratory: No Cough, No Sputum, No Dyspnea Gastrointestinal: No Nausea, No Vomiting, No Diarrhea, No Constipation, No Abdominal pain Genitourinary: No Dysuria, No Urinary Frequency, No Hematuria, No Flank Pain Musculoskeletal: No joint pain, No Myalgias, No Joint Swelling Skin: No Skin Lesions, No rash Neuro: +slurred speech (resolved), No Weakness, No Numbness, No Paresthesias, No Loss of Consciousness, + Dizziness, No Headache Yes all other systems are reviewed and are negative Constitutional: Constitutional: Reports as per HPI Neurologic: Denies Abnormal speech present [facility] Past Medical History Attestation statement: The following information was validated with the patient. Source: old records reviewed Medical History Leukopenia Pure hypercholesterolemia No pertinent past medical history Surgical History No pertinent past surgical history Family History Family History Mother No problems noted. Father No problems noted. 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 Current occupational exposures/hazards: No Cognitive needs: No Hearing needs: No Vision needs: No Physical Exam ED Vital Signs: Vital Signs - 24 hr 05/07/23 15:18 05/07/23 19:30 Temperature 97.5 F 97.3 F Pulse Rate 65 59 Respiratory Rate 16 18 Blood Pressure 129/72 117/75 Pulse Oximetry 97 100 Oxygen Delivery Method Room Air Room Air BMI result Body Mass Index 19.5 Const General: cooperative, healthy appearing, no acute distress, alert and awake Orientation/consciousness: patient oriented x3 Limitations: no limitations HENMT Head: Yes normal to inspection, Yes atraumatic, No Azul's sign and No raccoon eyes Ears: hearing grossly normal bilaterally General nose exam: Normal external nose present Face and sinus: Yes normal facial exam Mouth: Normal oral and palatal mucosa present Eyes General: appearance normal, both eyes and all related structures Pupils: Equal, round and reactive pupils present EOM: EOMs intact bilaterally Neck Neck: Yes normal visual inspection, Yes no meningeal signs and No anterior neck swelling Resp Effort & Inspection: normal respiratory effort and no respiratory distress Auscultation: clear to auscultation bilaterally, no crackles and no wheezes Cardio Rate: regular rate Heart sounds: S1 normal heart sound present and S2 normal heart sound present GI Inspection: Yes normal to inspection Palpation (GI): Soft to palpation, nontender, no guarding and not rigid Skin Rashes: no rashes Wounds: no wounds Neuro General: patient oriented x3, gait normal, tone normal, moves all extremities, no meningeal signs, no focal motor deficits and CN's II-XI intact bilaterally Cranial nerves: Yes CN's II-XII intact bilaterally and Yes Equal, round and reactive pupils present Cognition (Neuro): normal cognition Speech: No Abnormal speech present Gait exam (Neuro): Normal gait present Motor exam (neuro): 5/5 motor strength present throughout, Pronator motor function not present and no tremor noted Coordination: [id number] test normal Romberg Test: Negative Extrem General: Yes normal to inspection Course Course Course Narrative: RME- 43 year old male presents for evaluation of dizziness. He reports that his symptoms started last night before work. The stones were worse when he woke up this morning. He reports that his felt his speech was off but he has not noticed any difference. No neuro deficits on exam. NIH stroke score of 0. Plan for labs, EKG, orthostatics -1913-- no leukocytosis. Lipase mildly elevated to 123 -UA negative CT head/brain wo IV con IMPRESSION: No acute intracranial process seen > plan to admit for further management Medications Administered Generic Name Dose Route Start Last Admin Trade Name Freq PRN Reason Stop Dose Admin Enoxaparin Sodium 40 mg 05/08/23 00:00 05/07/23 23:57 Enoxaparin Sodium 40 Mg/0.4 Ml Syringe SUBCUT 40 mg Q24H KEANU Administration Sodium Chloride 3 ml 05/08/23 00:00 05/07/23 23:59 0.9 % Sodium Chloride Flush 3 Ml Syringe IVFLUSH 3 ml QSHIFT KEANU Administration Discontinued Medications Generic Name Dose Route Start Last Admin Trade Name Freq PRN Reason Stop Dose Admin Aspirin 325 mg 05/07/23 23:10 05/07/23 23:57 Aspirin Enteric Coated 325 Mg Tablet. PO 05/07/23 23:11 325 mg ONCE ONE Administration Meclizine HCl 25 mg 05/07/23 19:23 05/07/23 19:47 Meclizine Hcl 25 Mg Tablet PO 05/07/23 19:24 25 mg ONCE ONE Administration Medical Decision Making Medical Decision Making [facility] Narrative: 43-year-old male with a past medical history of leukopenia, HLD, presenting to ED complaining of dizziness described as feeling off balance since 16:00 yesterday after waking ( nights). reports associated slurred speech at that time which resolved after a few minutes. On exam vital signs stable, NAD, nontoxic appearing, no focal neuro deficits, no ataxia, ambulating with steady gait. No appreciable slurred speech at this time. Concern for subacute CVA/TIA vs vertigo vs metabolic abnormalities. Lower suspicion for cervical dissection/ACS or PE NIHSS=0 plan: EKG, labs, UA, head CT, orthostatics, admission Please refer to course for remaining clinical decision making, interpretation of labs/imaging results, and discussions with consultants and/or family members. Differential Diagnosis Differential Diagnoses: The differential diagnosis associated with the presentation includes As above Admission/Observation Consideration of admission/observation: Escalation of care including admission/observation considered Consult Healthcare Provider Management of the patient was discussed with: Hospitalist Lab Data MDM Lab Attestation statement: I reviewed the patient's lab results. 05/07/23 15:36 05/07/23 15:36 Labs: Lab Results 05/07/23 05/07/23 Range/Units 15:36 19:34 WBC 5.2 (4.8-10.8) X10*3/uL RBC 5.82 H (4.60-5.80) X10*6/uL Hgb 16.3 (14.0-18.0) g/dl Hct 48.8 (42.0-52.0) % MCV 83.8 (80.0-98.0) fL MCH 28.0 (27.0-33.0) pg MCHC 33.4 (31.0-36.0) g/dl RDW 12.4 (11.0-16.0) % Plt Count 220 (160-400) X10*3/uL MPV 10.1 (9.4-12.4) fL Immature Gran % (Auto) 0.2 (0.0-0.4) % Neut % (Auto) 51.2 (45-73) % Lymph % (Auto) 33.4 (20-40) % [place] % (Auto) 9.7 (2-11) % Eos % (Auto) 4.4 H (0-4) % Baso % (Auto) 1.1 (0-2) % Lymph # (Auto) 1.8 (1.2-4.9) X10*3/uL [place] # (Auto) 0.5 (0.1-1.2) X10*3/uL Eos # (Auto) 0.2 (0.0-0.4) X10*3/uL Baso # (Auto) 0.1 (0.0-0.2) X10*3/uL Abs Immat Gran (auto) 0.01 (0.00-0.03) X10*3/uL Absolute Neuts (auto) 2.7 (2.0-8.3) x10*3/uL Absolute Nucleated RBC 0.000 (0.0-0.012) X10*3/uL Nucleated RBC % (auto) 0.0 (0.0-0.2) /100WBC Sodium 139 (135-145) mmol/L Potassium 4.0 (3.3-5.1) mmol/L Chloride 106 (96-108) mmol/L Carbon Dioxide 27 (22-29) mmol/L Anion Gap 10 L (12-20) BUN 14 (9-16) mg/dL Creatinine 0.96 (0.5-1.4) mg/dL Estim Creat Clear Calc 93.2 Estimated GFR > 60 Random Glucose 98 (60-115) mg/dL Calcium 9.6 (8.4-10.2) mg/dL Total Bilirubin 0.9 (0.0-1.0) mg/dL AST 17 (5-37) U/L ALT 20 (0-40) U/L Alkaline Phosphatase 115 (39-117) U/L Total Protein 7.0 (6.5-8.0) g/dL Albumin 4.2 (3.5-5.0) g/dL Lipase 123 H (8-78) U/L Urine Color Yellow Urine Appearance Clear Urine pH 6.0 (5.0-9.0) Ur Specific [place] 1.025 (1.005-1.025) Urine Protein Negative (Neg-Trace) mg/dL Urine Glucose (UA) Negative (Negative) mg/dL Urine Ketones Negative (Negative) mg/dL Urine Blood Negative (Negative) Urine Nitrite Negative (Negative) Ur Leukocyte Esterase Negative (Negative) Independent Interpretation I performed an independent interpretation of an: EKG Radiology Impression Discussion of test interpretation with radiology: I have reviewed the radiologist's reading. Independent Historian Clinical information obtained from an independent historian. History obtained from or confirmed by: Spouse External Record Review External record reviewed: Inpatient record, Office record, Outpatient record, Prior outpatient labs, Prior outpatient radiology, Primary care record and Outside ED record Tests considered The following testing was considered but not selected: As above Chronic Conditions Patient?s care impacted by: Other (HLD) Discharge Plan Discharge Clinical Impression: Transient cerebral ischemia Patient Disposition: Admitted As Inpatient
--- NOTE | 2023-05-07 15:21 | ECG_ITS ---
Test Reason : PAIN Blood Pressure : / mmHG Vent. Rate : 054 BPM Atrial Rate : 054 BPM P-R Int : 154 ms QRS Dur : 116 ms QT Int : 384 ms P-R-T Axes : 039 069 056 degrees QTc Int : 364 ms Sinus bradycardia Minimal voltage criteria for LVH, may be normal variant ( Sokolow-Brito ) Possible Acute pericarditis ST elevation in Inferior leads Lateral leads Abnormal ECG When compared with ECG of 25-JUL-2021 20:21, Vent. rate has decreased BY [address] more elevated in Inferior leads Lateral leads T wave inversion no longer evident in Lateral leads Referred By: Flynn Ryan Electronically Signed By:CARIDAD GIRON MD
[2023-05-07 15:44] LABS: Basophils Absolute Auto 0.1 X10*3/uL (0.0-0.2); Basophils Percent Auto 1.1 % (0-2); Eosinophils Absolute Auto 0.2 X10*3/uL (0.0-0.4); Eosinophils Percent Auto 4.4 % (0-4); Hematocrit 48.8 % (42.0-52.0); Hemoglobin 16.3 g/dl (14.0-18.0); Imm Gran Abs Auto 0.01 X10*3/uL (0.00-0.03); Imm Gran Pct Auto 0.2 % (0.0-0.4); Lymphocytes Absolute Auto 1.8 X10*3/uL (1.2-4.9); Lymphocytes Percent Auto 33.4 % (20-40); MANUAL DIFF FLAG NO; Mean Corpuscular HGB Conc 33.4 g/dl (31.0-36.0); Mean Corpuscular Volume 83.8 fL (80.0-98.0); Mean Platelet Volume 10.1 fL (9.4-12.4); Monocytes Absolute Auto 0.5 X10*3/uL (0.1-1.2); Monocytes Percent Auto 9.7 % (2-11); Neutrophils Absolute Auto 2.7 x10*3/uL (2.0-8.3); Neutrophils Percent Auto 51.2 % (45-73); Platelet Count 220 X10*3/uL (160-400); Red Blood Count 5.82 X10*6/uL (4.60-5.80); Red Cell Distribution Width 12.4 % (11.0-16.0); White Blood Count 5.2 X10*3/uL (4.8-10.8)
[2023-05-07 16:01] LABS: Alanine Aminotransferase 20 U/L (0-40); Albumin Level 4.2 g/dL (3.5-5.0); Alkaline Phosphatase 115 U/L (39-117); Anion Gap 10 (12-20); Aspartate Amino Transferase 17 U/L (5-37); Bilirubin Total 0.9 mg/dL (0.0-1.0); Blood Urea Nitrogen 14 mg/dL (9-16); Calcium 9.6 mg/dL (8.4-10.2); Carbon Dioxide 27 mmol/L (22-29); Chloride 106 mmol/L (96-108); Creatinine Clr Calc Pharmacy 93.2; Estimated Glomerular Filt Rate > 60; Glucose Random 98 mg/dL (60-115); Lipase 123 U/L (8-78); Sodium 139 mmol/L (135-145)
[2023-05-07 19:30] VITALS: BP 117/75; PULSE 59; RESP 18; TEMP 36.3; O2SAT 100
[2023-05-07 19:41] LABS: Appearance Urine Clear; Color Urine Yellow; Glucose Urine UA Negative (Negative); Leukocyte Esterase Urine Negative (Negative); Nitrite Urine Negative (Negative); Specific Gravity - Urine 1.025 (1.005-1.025); Urine Blood Negative (Negative); Urine Ketones Negative (Negative); Urine Protein Negative (Neg-Trace)
[2023-05-07] MEDS: Meclizine HCl 25 MG TABLET PO (19:47)
--- NOTE | 2023-05-07 23:06 | PM.IMHP ---
History of Present Illness Date of Service: 05/07/23 Chief Complaint: Dizziness This is a 43-year-old male with history of tobacco use disorder who presents to the emergency department for evaluation of dizziness. Patient states he started having dizziness yesterday evening when he woke up from sleep. Patient works through the nights and sleeps during the day. Patient states that dizziness is constant and worse with ambulation. Better with rest. It has been constant and progressive over the last 24 hours. The also noticed slurring of speech which resolved after 3 minutes. Patient states he also has associated imbalance of gait. No similar history in the past. No nausea or vomiting. No blurring of vision. No facial droop. No jerking movement of extremities. Patient denies fever, chills, chest discomfort, palpitations, shortness of breath, abdominal pain, changes in urinary or bowel habits. Review of Systems Constitutional: Constitutional: Reports no additional constitutional complaints ENT: Reports dizziness Cardiovascular: Cardiovascular: Reports no additional cardiovascular complaints Respiratory: Respiratory: Reports no additional respiratory complaints Gastrointestinal: Gastrointestinal: Reports no additional gastrointestinal complaints Genitourinary: Genitourinary: Reports no additional male genitourinary complaints Musculoskeletal: Musculoskeletal: Reports abnormal gait Neurologic: Reports Abnormal speech present, Reports abnormal gait and Reports dizziness [facility] Medical History Leukopenia Pure hypercholesterolemia No pertinent past medical history Family History Mother No problems noted. Father No problems noted. 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 occupational exposures/hazards: No Cognitive needs: No Hearing needs: No Vision needs: No Meds Allergies Allergy/AdvReac Type Severity Reaction Status Date / Time No Known Allergies Allergy Verified 02/02/23 10:25 Physical Exam Vital Signs and Narrative: Vital Signs: Last Vital Signs Temp 97.3 F 05/07/23 19:30 Pulse 59 05/07/23 19:30 Resp 18 05/07/23 19:30 BP 117/75 05/07/23 19:30 Pulse Ox 100 05/07/23 19:30 O2 Del Method Room Air 05/07/23 19:30 BMI result Body Mass Index 19.5 Middle-aged male lying in bed in no distress Neck supple, no JVD Regular rate and rhythm, S1-S2 heard Regular breath sounds bilaterally, no wheezing or crackles appreciated Abdomen soft nontender, no guarding, no rigidity Patient is awake, alert and oriented to self, place, time and person ; no nystagmus, no dysdiadochokinesia, no facial droop, strength equal in bilateral upper and lower extremities, tongue and uvula midline, shoulder strength normal Psych: Normal mood No pedal edema Neuro: Speech: Abnormal speech present Results Labs 05/07/23 15:36 05/07/23 15:36 Labs: Laboratory Results - last 24 hr 05/07/23 05/07/23 15:36 19:34 MCV 83.8 MCH 28.0 MCHC 33.4 RDW 12.4 Plt Count 220 MPV 10.1 Immature Gran % (Auto) 0.2 Neut % (Auto) 51.2 Lymph % (Auto) 33.4 [place] % (Auto) 9.7 Eos % (Auto) 4.4 H Baso % (Auto) 1.1 Lymph # (Auto) 1.8 [place] # (Auto) 0.5 Eos # (Auto) 0.2 Baso # (Auto) 0.1 Abs Immat Gran (auto) 0.01 Absolute Neuts (auto) 2.7 Absolute Nucleated RBC 0.000 Nucleated RBC % (auto) 0.0 Anion Gap 10 L Estim Creat Clear Calc 93.2 Estimated GFR > 60 Random Glucose 98 Calcium 9.6 Total Bilirubin 0.9 AST 17 ALT 20 Alkaline Phosphatase 115 Total Protein 7.0 Albumin 4.2 Lipase 123 H Urine Color Yellow Urine Appearance Clear Urine pH 6.0 Ur Specific [place] 1.025 Urine Protein Negative Urine Glucose (UA) Negative Urine Ketones Negative Urine Blood Negative Urine Nitrite Negative Ur Leukocyte Esterase Negative Imaging Radiologist's Impressions: Impressions Head CT 05/07/23 20:46 IMPRESSION: No acute intracranial process seen Assessment and Plan (1) Dizziness: Status: Acute Plan This is a 43-year-old male with history of tobacco use disorder who presents to the emergency department for evaluation of dizziness. #. Dizziness. Also had feeling of disequilibrium and slurred speech (which resolved). Will admit patient with desk monitor and obtain MRI to rule out central etiology. Patient denies improvement with meclizine in the ER. Consulting Neurology, appreciate assistance. Administering aspirin #. Tobacco use disorder. Counseled regarding cessation. Refused nicotine patch in the hospital DVT prophylaxis: Lovenox Full code Time Spent With Patient Time: Total time managing care of this patient today ____ minutes. Quality Stroke Does the patient have a stroke diagnosis?: No VTE Prior VTE?: No VTE Risk Level:: Medical - moderate - high VTE Device Contraindication: Treatment Not Indicated VTE Drug Contraindication: N/A - Med Ordered
[2023-05-07 23:49] VITALS: BP 115/72; PULSE 68; RESP 14; O2SAT 99
[2023-05-07] MEDS: Aspirin Enteric Coated 325 MG TABLET.DR PO (23:57)
[2023-05-07] MEDS: Enoxaparin Sodium 40 MG/0.4 ML SYRINGE SUBCUT (23:57)
[2023-05-07] MEDS: 0.9 % Sodium Chloride Flush 3 ML SYRINGE IVFLUSH (23:59)
[2023-05-08] VITALS (10 sets, daily range): BP systolic 102–133; BP diastolic 48–75; PULSE 53–84; RESP 14–20; TEMP 36.3–37.4; O2SAT 97–100
--- NOTE | 2023-05-08 02:09 | PC.NURSE ---
Assumed care of patient at 2300, patient has been resting comfortably on stretcher, reports no pain or complaints to this RN. States his dizziness has been getting better. Verbalizes understanding of plan to admit for further testing. This RN placed 20g IV in LAC. Pt is alert and oriented x4, respirations even and unlabored, skin pwd, no apparent distress.
--- NOTE | 2023-05-08 02:54 | PC.NURSE ---
this RN ambulated patient over to ED 7, patient was able to ambulate with steady gait, reports no changed in dizziness. Pt now resting comfortably on stretcher, respirations even and unlabored, skin pwd, alert and oriented x4. Report given to [place]IA Evans
--- NOTE | 2023-05-08 03:30 | PC.NURSE ---
this rn assumed care of pt @ 0300 from [facility]. pt calm and cooperative placed in ed 7. pt denies new needs at this time. lights dimmed
[2023-05-08 05:44] LABS: MANUAL DIFF FLAG NO
[2023-05-08 05:48] LABS: Basophils Absolute Auto 0.1 X10*3/uL (0.0-0.2); Eosinophils Absolute Auto 0.4 X10*3/uL (0.0-0.4); Eosinophils Percent Auto 5.2 % (0-4); Hematocrit 47.1 % (42.0-52.0); Hemoglobin 15.8 g/dl (14.0-18.0); Imm Gran Abs Auto 0.04 X10*3/uL (0.00-0.03); Imm Gran Pct Auto 0.6 % (0.0-0.4); Lymphocytes Absolute Auto 2.7 X10*3/uL (1.2-4.9); Lymphocytes Percent Auto 40.1 % (20-40); Mean Corpuscular HGB Conc 33.5 g/dl (31.0-36.0); Mean Corpuscular Volume 83.5 fL (80.0-98.0); Mean Platelet Volume 10.1 fL (9.4-12.4); Monocytes Absolute Auto 0.6 X10*3/uL (0.1-1.2); Monocytes Percent Auto 9.4 % (2-11); Neutrophils Absolute Auto 2.9 x10*3/uL (2.0-8.3); Neutrophils Percent Auto 43.7 % (45-73); Platelet Count 221 X10*3/uL (160-400); Red Blood Count 5.64 X10*6/uL (4.60-5.80); Red Cell Distribution Width 12.1 % (11.0-16.0); White Blood Count 6.7 X10*3/uL (4.8-10.8)
[2023-05-08 06:05] LABS: Anion Gap 15 (12-20); Blood Urea Nitrogen 17 mg/dL (9-16); Calcium 9.2 mg/dL (8.4-10.2); Carbon Dioxide 26 mmol/L (22-29); Chloride 105 mmol/L (96-108); Creatinine Clr Calc Pharmacy 101.7; Estimated Glomerular Filt Rate > 60; Glucose Random 108 mg/dL (60-115); Potassium 4.2 mmol/L (3.3-5.1); Sodium 142 mmol/L (135-145)
--- NOTE | 2023-05-08 06:16 | PC.NURSE ---
pt bed assignment made. this rn attempted to call report unable to speak to nurse. this rn tiger texted receiving rn . no response at this time
--- NOTE | 2023-05-08 07:06 | PC.NURSE ---
this rn gave report to marcos sarabia @ [phone] per RN no monitor beds available will call ed once bed is ready. report given by this rn
--- NOTE | 2023-05-08 07:48 | PHA.MEDREC ---
Pharmacy Consult ? Medication Reconciliation Pharmacy has completed the medication reconciliation.Med rec confirmed by nursing, patient not taking any medications
--- NOTE | 2023-05-08 09:09 | ECG_ITS ---
Test Reason : dizziness Blood Pressure : / mmHG Vent. Rate : 054 BPM Atrial Rate : 054 BPM P-R Int : 162 ms QRS Dur : 118 ms QT Int : 376 ms P-R-T Axes : 052 072 060 degrees QTc Int : 356 ms Sinus bradycardia Non-specific intra-ventricular conduction delay Minimal voltage criteria for LVH, may be normal variant ( Sokolow-Brito ) ST elevation, consider early repolarization, pericarditis, or injury Nonspecific T wave abnormality Abnormal ECG When compared with ECG of 07-MAY-2023 15:32, No significant change was found Referred By: Lyndsey Shah Electronically Signed By:CARIDAD GIRON MD
[2023-05-08 10:45] LABS: Troponin-I High Sensitivity 12.8 ng/L (<3.5-35.0)
--- NOTE | 2023-05-08 11:00 | P.CNNE_ITS ---
History of Present Illness Data of Consult Service Date: 05/08/23 Primary Care Provider: Joseline Villa MD HPI Reason for consult: Unsteadiness 43 years old man who was head that he woke up yesterday and was unsteady. There was no headache neck pain trauma any focal weakness or exposure to alcohol or drugs. He said that his speech was different. Review of Systems 2 Review of Systems: No recent cold or flu-like illness PMFSH Past Medical History Medical History Leukopenia Pure hypercholesterolemia No pertinent past medical history Family History Family History Mother No problems noted. Father No problems noted. Surgical History Surgical History No pertinent past surgical history Social History Social History Household Members: Spouse and Children Housing: House Do you presently have visiting nurse or other home services: No Alcohol intake: current Alcohol intake frequency: a few times a week Alcohol type: hard liquor Patient Tobacco Use Status: Current someday Tobacco user Tobacco use type: Cigarette Cigarettes Per Day: 6 Smoked in Last 30 Days: Yes e-Cigarette/Vaping Use: Never Used Patient Interested in Nicotine Replacement: No Patient Given Instructions on How to Stop Smoking: No Second Hand Smoke Exposure: Yes Use of substances other than those prescribed or required for medical reasons: No Substance Use Type: Marijuana Substance Use Frequency: Daily Last Used Substance: Days (ago) Last Used Substance Other:: 2 days Currently Displaying Signs/Symptoms of Drug Intoxication Withdrawal: No Any prior treatment program specific to substance use: No Have you been hit, kicked, punched, or otherwise hurt by someone within the past year? 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 Current occupational exposures/hazards: No Cognitive needs: No Hearing needs: No Vision needs: No Meds Allergies Allergy/AdvReac Type Severity Reaction Status Date / Time No Known Allergies Allergy Verified 05/08/23 02:08 Active Medications: Current Medications Acetaminophen (Acetaminophen 325 Mg Tablet) 650 mg PO Q6H PRN PRN Reason: Pain, Mild (Pain Scale 1-3) Enoxaparin Sodium (Enoxaparin Sodium 40 Mg/0.4 Ml Syringe) 40 mg SUBCUT Q24H [facility] Last Admin: 05/07/23 23:57 Dose: 40 mg Melatonin (Melatonin 3 Mg Tablet) 6 mg PO BEDTIME PRN PRN Reason: Insomnia Ondansetron HCl (Ondansetron Hcl 4 Mg/2 Ml Vial) 4 mg IVPUSH Q8H PRN PRN Reason: Nausea and Vomiting Sodium Chloride (0.9 % Sodium Chloride Flush 3 Ml Syringe) 3 ml IVFLUSH QSHIFT [facility] Last Admin: 05/07/23 23:59 Dose: 3 ml Home Medications Medication Instructions Recorded Confirmed Last Taken Type No Known Home Meds 05/08/23 05/08/23 Unknown History Physical Exam 2 Vital Signs: Vital Signs: Last Vital Signs Temp 97.4 F 05/08/23 08:52 Pulse 57 05/08/23 08:52 Resp 20 05/08/23 08:52 BP 119/66 05/08/23 08:52 Pulse Ox 98 05/08/23 08:52 O2 Del Method Room Air 05/08/23 08:52 BMI result Body Mass Index 19.5 Neuro: Other: He is alert and awake with normal spontaneity of speech fluency comprehension and affect. Face is symmetrical. Visual alas are full. There is no nystagmus. There is no tremor. [id number] testing is normal. Deep tendon reflexes are trace to 1+ with flexor plantars. Speech is normal. He is able to get up and walk on heels toes and tandem with no significant difficulty. Results Labs 05/08/23 05:35 05/08/23 05:35 Labs: Short CBC 05/07/23 05/08/23 Range/Units 15:36 05:35 WBC 5.2 6.7 (4.8-10.8) X10*3/uL Hgb 16.3 15.8 (14.0-18.0) g/dl Hct 48.8 47.1 (42.0-52.0) % Plt Count 220 221 (160-400) X10*3/uL BMP 05/07/23 05/08/23 15:36 05:35 Sodium 139 142 Potassium 4.0 4.2 Chloride 106 105 Carbon Dioxide 27 26 BUN 14 17 H Creatinine 0.96 0.88 Calcium 9.6 9.2 Liver Function 05/07/23 Range/Units 15:36 Total Bilirubin 0.9 (0.0-1.0) mg/dL AST 17 (5-37) U/L ALT 20 (0-40) U/L Alkaline Phosphatase 115 (39-117) U/L Albumin 4.2 (3.5-5.0) g/dL Urine 05/07/23 Range/Units 19:34 Urine Color Yellow Urine Appearance Clear Urine pH 6.0 (5.0-9.0) Ur Specific [place] 1.025 (1.005-1.025) Urine Protein Negative (Neg-Trace) mg/dL Urine Glucose (UA) Negative (Negative) mg/dL Noncontrast head CT did not reveal any significant abnormality per Assessment and Plan (1) Dizziness: Status: Acute 43 years old man who woke up yesterday with unsteadiness and said that his speech was somewhat different. There was no pain or headache or any cold or flu-like illness or ear pain or ear symptom. His examination now did not reveal any significant abnormality. Head CT was normal. There was no obvious metabolic abnormality to explain it. Differential diagnosis of this type of problem was brought but as he stated that his speech was involved, it would suggest more of a central etiology than peripheral. A noncontrast MRI of brain is recommended to look at his brainstem structures. Overall history is not suggestive of seizure disorder. Time Spent With Patient Time: Total time managing care of this patient today ____ minutes. Procedures Date of Service Date of Service: 05/08/23
--- NOTE | 2023-05-08 11:52 | MHC.CM.PN ---
CHRISTINE 05/08/23, EMR REVIEWED, CM MET W/PT WHO REPORTS HE LIVES W/ & SON, IS INDEP W/ALL CARE, WORKS/DRIVES AND DENIES USE OF DME/SERVICES. PT REPORTS HAS COMPLETED A HCP NAMING HIS LEODIA STANLEY [id number] HIS [facility], NO ALTERNATE CHOSEN AT THIS TIME. PT RECEIVED EDUCATIONAL INFO IN [employer] ORIGINAL AND 2 COPIES, COPY UPLOADED TO [facility] AND PLACED IN CHART W/PT PERMISSION. PT VERIFIES PCP IS LISA AYALA, DENIES RECEIVING ANY VACCINE FOR COVID19 AND HCP NOW ON FILE. DCP: HOME [facility] W/FAMILY FOR TRANSPORT
[2023-05-08] MEDS: 0.9 % Sodium Chloride Flush 3 ML SYRINGE IVFLUSH ×3 (12:36→23:13)
--- NOTE | 2023-05-08 12:45 | P.CONCA_ITS ---
History of Present Illness History of Present Illness Date of Service: 05/08/23 Requesting physician: Lyndsey Shah Chief complaint: Dizziness Narrative: 43 gentleman who have been asked to assess for abnormal ECG. He is presenting with dizziness. He said 2 days ago he went to bed and woke up with some dizziness and feeling off balance. He did not describe vertigo or lightheadedness. He just felt that when he is walking he is of balance and tend to fall in both directions. He continued to have these symptoms for 24 hours and next day he decided to come to the emergency department. He had a CT performed the ER which was normal. He had ECG performed which showed ST elevations and we were called to assess him. His denying chest discomfort shortness of breath. ECG is showing early repolarization. He is waiting for MRI. [facility] Past Medical History Medical History Leukopenia Pure hypercholesterolemia No pertinent past medical history Family History Family History Mother No problems noted. Father No problems noted. Surgical History Surgical History No pertinent past surgical history Social History Social History Household Members: Spouse and Children Housing: House Do you presently have visiting nurse or other home services: No Alcohol intake: current Alcohol intake frequency: a few times a week Alcohol type: hard liquor Patient Tobacco Use Status: Current someday Tobacco user Tobacco use type: Cigarette Cigarettes Per Day: 6 Smoked in Last 30 Days: Yes e-Cigarette/Vaping Use: Never Used Patient Interested in Nicotine Replacement: No Patient Given Instructions on How to Stop Smoking: No Second Hand Smoke Exposure: Yes Use of substances other than those prescribed or required for medical reasons: No Substance Use Type: Marijuana Substance Use Frequency: Daily Last Used Substance: Days (ago) Last Used Substance Other:: 2 days Currently Displaying Signs/Symptoms of Drug Intoxication Withdrawal: No Any prior treatment program specific to substance use: No Have you been hit, kicked, punched, or otherwise hurt by someone within the past year? 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 Current occupational exposures/hazards: No Cognitive needs: No Hearing needs: No Vision needs: No Meds Allergies Allergy/AdvReac Type Severity Reaction Status Date / Time No Known Allergies Allergy Verified 05/08/23 02:08 Active Medications: Current Medications Acetaminophen (Acetaminophen 325 Mg Tablet) 650 mg PO Q6H PRN PRN Reason: Pain, Mild (Pain Scale 1-3) Enoxaparin Sodium (Enoxaparin Sodium 40 Mg/0.4 Ml Syringe) 40 mg SUBCUT Q24H [facility] Last Admin: 05/07/23 23:57 Dose: 40 mg Melatonin (Melatonin 3 Mg Tablet) 6 mg PO BEDTIME PRN PRN Reason: Insomnia Ondansetron HCl (Ondansetron Hcl 4 Mg/2 Ml Vial) 4 mg IVPUSH Q8H PRN PRN Reason: Nausea and Vomiting Sodium Chloride (0.9 % Sodium Chloride Flush 3 Ml Syringe) 3 ml IVFLUSH QSHIFT [facility] Last Admin: 05/08/23 12:36 Dose: 3 ml Home Medications Medication Instructions Recorded Confirmed Last Taken Type No Known Home Meds 05/08/23 05/08/23 Unknown History Physical Exam 2 Vital Signs: Vital Signs: Last Vital Signs Temp 97.7 F 05/08/23 11:08 Pulse 53 05/08/23 11:08 Resp 20 05/08/23 11:08 BP 113/68 05/08/23 11:08 Pulse Ox 97 05/08/23 11:08 O2 Del Method Room Air 05/08/23 11:08 BMI result Body Mass Index 19.5 GENERAL APPEARANCE: in no acute distress, pleasant. NECK: no carotid bruit, no jugular venous distention. SKIN: no suspicious lesions, warm and dry. HEART: no murmurs, regular rate and rhythm. LUNGS: clear to auscultation bilaterally. ABDOMEN: soft, nontender. EXTREMITIES: no edema. PERIPHERAL PULSES: equal. NEUROLOGIC: No gross deficits, AAO X 3 Objective Labs and Meds 05/08/23 05:35 05/08/23 05:35 Lab results: Laboratory Results - last 24 hr 05/07/23 05/07/23 05/08/23 15:36 19:34 05:35 WBC 5.2 6.7 RBC 5.82 H 5.64 Hgb 16.3 15.8 Hct 48.8 47.1 MCV 83.8 83.5 MCH 28.0 28.0 MCHC 33.4 33.5 RDW 12.4 12.1 Plt Count 220 221 MPV 10.1 10.1 Immature Gran % (Auto) 0.2 0.6 H Neut % (Auto) 51.2 43.7 L Lymph % (Auto) 33.4 40.1 H [place] % (Auto) 9.7 9.4 Eos % (Auto) 4.4 H 5.2 H Baso % (Auto) 1.1 1.0 Lymph # (Auto) 1.8 2.7 [place] # (Auto) 0.5 0.6 Eos # (Auto) 0.2 0.4 Baso # (Auto) 0.1 0.1 Abs Immat Gran (auto) 0.01 0.04 H Absolute Neuts (auto) 2.7 2.9 Absolute Nucleated RBC 0.000 0.000 Nucleated RBC % (auto) 0.0 0.0 Sodium 139 142 Potassium 4.0 4.2 Chloride 106 105 Carbon Dioxide 27 26 Anion Gap 10 L 15 BUN 14 17 H Creatinine 0.96 0.88 Estim Creat Clear Calc 93.2 101.7 Estimated GFR > 60 > 60 Random Glucose 98 108 Calcium 9.6 9.2 Total Bilirubin 0.9 AST 17 ALT 20 Alkaline Phosphatase 115 Troponin I High Sens Total Protein 7.0 Albumin 4.2 Lipase 123 H Urine Color Yellow Urine Appearance Clear Urine pH 6.0 Ur Specific [place] 1.025 Urine Protein Negative Urine Glucose (UA) Negative Urine Ketones Negative Urine Blood Negative Urine Nitrite Negative Ur Leukocyte Esterase Negative 05/08/23 10:16 WBC RBC Hgb Hct MCV MCH MCHC RDW Plt Count MPV Immature Gran % (Auto) Neut % (Auto) Lymph % (Auto) [place] % (Auto) Eos % (Auto) Baso % (Auto) Lymph # (Auto) [place] # (Auto) Eos # (Auto) Baso # (Auto) Abs Immat Gran (auto) Absolute Neuts (auto) Absolute Nucleated RBC Nucleated RBC % (auto) Sodium Potassium Chloride Carbon Dioxide Anion Gap BUN Creatinine Estim Creat Clear Calc Estimated GFR Random Glucose Calcium Total Bilirubin AST ALT Alkaline Phosphatase Troponin I High Sens 12.8 Total Protein Albumin Lipase Urine Color Urine Appearance Urine pH Ur Specific [place] Urine Protein Urine Glucose (UA) Urine Ketones Urine Blood Urine Nitrite Ur Leukocyte Esterase Imaging Radiologist's impression: Impressions Head CT 05/07/23 20:46 IMPRESSION: No acute intracranial process seen Assessment and Plan (1) Dizziness: Status: Acute (2) Abnormal ECG: Status: Acute Plan Pleasant 43-year-old gentleman who is presenting for dizziness. He is waiting for MRI to rule out CVA. He has continuous ringing in his ears for long time. If MRI is normal then he needs ENT evaluation as outpatient. In terms of his EKG, he has a reported as a garcia. This is a benign finding in most cases. Recommend no further workup currently. He can get the brain MRI and potentially can go home if that is normal. He can see us in the office if he has any concerns or if he develops any chest discomfort shortness of breath. Thank you for allowing me to participate in the care of your patient. Please feel free to contact me if you have any questions. Time Spent With Patient Time: Total time managing care of this patient today ____ minutes. Procedures Date of Service Date of Service: 05/08/23
[2023-05-08] MEDS: Aspirin Enteric Coated 81 MG TABLET.DR PO (14:27)
--- NOTE | 2023-05-08 15:01 | HO.PM.IMPN ---
Subjective Subjective Date of Service: 05/08/23 Interval History: seen and examined this morning follow up for feeling off balance still feeling the same, but has been able to ambulate without assistance Review of Systems Review of Systems: Yes all other systems are reviewed and are negative Constitutional Constitutional: Denies chills and Denies fever(s) ENT Ears, Nose, Mouth, and Throat: Reports dizziness Cardiovascular Cardiovascular: Denies chest pain and Denies dyspnea Respiratory Respiratory: Denies cough and Denies dyspnea Gastrointestinal Gastrointestinal: Denies abdominal pain Neurologic Neurologic: Reports dizziness Physical Exam Vital Signs: Vital Signs: Last Vital Signs Temp 97.7 F 05/08/23 11:08 Pulse 53 05/08/23 11:08 Resp 20 05/08/23 11:08 BP 113/68 05/08/23 11:08 Pulse Ox 97 05/08/23 11:08 O2 Del Method Room Air 05/08/23 11:08 BMI result Body Mass Index 19.5 Const: General: cooperative, comfortable, no acute distress, alert and awake Nutritional Appearance: average body habitus Orientation/consciousness: patient oriented x3 Resp: Effort & Inspection: normal respiratory effort, able to speak in complete sentences, no respiratory distress and no use of accessory muscles Cardio: Rate: regular rate GI: Inspection: No distended Palpation (GI): Soft to palpation Neuro: General: patient oriented x3, moves all extremities and CN's II-XI intact bilaterally Extrem: General: Yes no pedal edema Objective Data Active Medications Acetaminophen (Acetaminophen 325 Mg Tablet) 650 mg PO Q6H PRN PRN Reason: Pain, Mild (Pain Scale 1-3) Aspirin (Aspirin Enteric Coated 81 Mg Tablet.) 81 mg PO DAILY [facility] Last Admin: 05/08/23 14:27 Dose: 81 mg Documented By: CELESTINE Enoxaparin Sodium (Enoxaparin Sodium 40 Mg/0.4 Ml Syringe) 40 mg SUBCUT Q24H [facility] Last Admin: 05/07/23 23:57 Dose: 40 mg Documented By: JENNA Melatonin (Melatonin 3 Mg Tablet) 6 mg PO BEDTIME PRN PRN Reason: Insomnia Ondansetron HCl (Ondansetron Hcl 4 Mg/2 Ml Vial) 4 mg IVPUSH Q8H PRN PRN Reason: Nausea and Vomiting Sodium Chloride (0.9 % Sodium Chloride Flush 3 Ml Syringe) 3 ml IVFLUSH QSHIFT [facility] Last Admin: 05/08/23 12:36 Dose: 3 ml Documented By: CELESTINE Labs 05/08/23 05:35 05/08/23 05:35 Labs: Laboratory Results - last 24 hr 05/07/23 05/07/23 05/08/23 15:36 19:34 05:35 MCV 83.8 83.5 MCH 28.0 28.0 MCHC 33.4 33.5 RDW 12.4 12.1 Plt Count 220 221 MPV 10.1 10.1 Immature Gran % (Auto) 0.2 0.6 H Neut % (Auto) 51.2 43.7 L Lymph % (Auto) 33.4 40.1 H [place] % (Auto) 9.7 9.4 Eos % (Auto) 4.4 H 5.2 H Baso % (Auto) 1.1 1.0 Lymph # (Auto) 1.8 2.7 [place] # (Auto) 0.5 0.6 Eos # (Auto) 0.2 0.4 Baso # (Auto) 0.1 0.1 Abs Immat Gran (auto) 0.01 0.04 H Absolute Neuts (auto) 2.7 2.9 Absolute Nucleated RBC 0.000 0.000 Nucleated RBC % (auto) 0.0 0.0 Anion Gap 10 L 15 Estim Creat Clear Calc 93.2 101.7 Estimated GFR > 60 > 60 Random Glucose 98 108 Calcium 9.6 9.2 Total Bilirubin 0.9 AST 17 ALT 20 Alkaline Phosphatase 115 Total Protein 7.0 Albumin 4.2 Lipase 123 H Urine Color Yellow Urine Appearance Clear Urine pH 6.0 Ur Specific [place] 1.025 Urine Protein Negative Urine Glucose (UA) Negative Urine Ketones Negative Urine Blood Negative Urine Nitrite Negative Ur Leukocyte Esterase Negative Assessment and Plan (1) Abnormal ECG: Status: Acute (2) Dizziness: Status: Acute Plan This is a 43-year-old male with history of tobacco use disorder who presents to the emergency department for evaluation of dizziness. Dizziness had feeling of disequilibrium and slurred speech (which resolved) Brain MRI negative for acute bleed or infarct, nonspecific white matter changes seen seen by neuro - stroke, demyelinating dz ruled out, history not c/w seizure, no headache so not migraine associated - rec CTA head/neck, aspirin for now Abnormal EKG no chest pain seen by cardiology, likely early repolarization, no further work up indicated at this time outpatient follow up if develops any chest pain or sob chronic tinnitus reports ongoing for years consider outpatient ENT eval Tobacco use disorder. Counseled regarding cessation. Refused nicotine patch in the hospital DVT prophylaxis: Lovenox Full code attending - dr. oviedo requires ongoing inpatient stay for further neuro workup Time Spent With Patient Time: Total time managing care of this patient today ____ minutes. Quality Stroke Does the patient have a stroke diagnosis?: No VTE Prior VTE?: No VTE Risk Level:: Medical - moderate - high VTE Device Contraindication: Treatment Not Indicated VTE Drug Contraindication: N/A - Med Ordered
[2023-05-08] MEDS: iohexoL 350 MG/ML 100 ML INFUS..BTL IV (16:23)
--- NOTE | 2023-05-08 19:47 | PC.NURSE ---
Assumed care at 0900. Patient alert and oriented x4, no complaints, denying any dizziness, reports the dizziness was lightheadedness and not a spinning sensation. ambulated with steady gait and standby assist only. Patient went for MRI and CTA today. Upon arrival, when placed on telemetry, there was noted to be ST elevation in the V lead, no chest pain, previous EKG seemed to show ST elevation in leads V3-V4 discussed with PA and new orders for EKG, troponins, and cardiology consult. Not a STEMI per PA and cardiology. In evening, patient reports he was lightheaded again a couple of times today, but not very clear description. High falls risk per protocol. Neuros otherwise unremarkable.
[2023-05-08] MEDS: Enoxaparin Sodium 40 MG/0.4 ML SYRINGE SUBCUT (23:09)
[2023-05-09 03:16] VITALS: BP 115/66; PULSE 60; RESP 16; TEMP 36.8; O2SAT 97
[2023-05-09 07:57] VITALS: BP 117/63; PULSE 68; RESP 18; TEMP 36.3; O2SAT 98
[2023-05-09] MEDS: Aspirin Enteric Coated 81 MG TABLET.DR PO (09:30)
[2023-05-09] MEDS: 0.9 % Sodium Chloride Flush 3 ML SYRINGE IVFLUSH (09:32)
[2023-05-09 12:00] VITALS: BP 119/83; PULSE 63; RESP 17; TEMP 36.2; O2SAT 98
--- NOTE | 2023-05-09 12:08 | PM.DS ---
DS: Providers Provider Date of Service: 05/09/23 Date of admission: 05/07/23 23:05 Primary care physician: Joseline Villa MD Consults: 05/07/23 23:11 Consult to Neurology Routine Consulting Provider: [facility] Reason for consultation: Dizziness 05/08/23 09:31 Consult to Cardiology Routine Consulting Provider: [facility] Cardiovascular Services Reason for consultation: abnormal EKG Has provider been notified: No DS: Diagnosis Discharge Diagnosis (1) Abnormal ECG: Status: Acute (2) Dizziness: Status: Acute DS: Summary Hospital Course Hospital Course: History and physical as per admitting provider. This is a 43-year-old male with history of tobacco use disorder who presents to the emergency department for evaluation of dizziness. Patient states he started having dizziness yesterday evening when he woke up from sleep. Patient works through the nights and sleeps during the day. Patient states that dizziness is constant and worse with ambulation. Better with rest. It has been constant and progressive over the last 24 hours. The also noticed slurring of speech which resolved after 3 minutes. Patient states he also has associated imbalance of gait. No similar history in the past. No nausea or vomiting. No blurring of vision. No facial droop. No jerking movement of extremities. Patient denies fever, chills, chest discomfort, palpitations, shortness of breath, abdominal pain, changes in urinary or bowel habits. Patient eloped prior to being seen by PT for vestibular exercises. Nurse unable to obtain signature for AMA paperwork Patient was treated dizziness initially thought to be possibly a stroke. MRI and head and neck CTA both negative for acute abnormalities. Patient seen and evaluated by Neurology. Patient has history of tinnitus and may very well have some vestibular issues. Physical therapy was going to see him to work with him to do vestibular exaercises but patient eloped prior to being seen. During the hospitalization his labs have remained within acceptable limits along with vital signs specifically his blood pressure. No obvious signs of infection noted. Patient reported that he did feel better and was sitting up eating breakfast during his initial interview this morning. Again unfortunately patient eloped prior to being seen by the physical therapist without even signing the AMA paperwork. Tobacco use this. Consult regarding cessation may use [id number] nicotine patches or gum Noted to have abnormal EKG during admission without chest pain. 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 History of chronic tinnitus. May be contributing to his dizzy symptoms. He can follow-up with his primary care provider to be referred for vestibular rehab. Time Spent with Patient Time attestation: Total time managing care of this patient today ____ minutes. Discharge coordination time: Greater than 30 minutes Quality: Safe Use of Opioids Does Pt have an Active Cancer Diagnosis on the Problem List?: No Quality: Stroke Does the patient have a stroke diagnosis?: No Physical Exam Vital Signs: Vital Signs: Last Vital Signs Temp 97.4 F 05/09/23 07:57 Pulse 68 05/09/23 07:57 Resp 18 05/09/23 07:57 BP 117/63 05/09/23 07:57 Pulse Ox 98 05/09/23 07:57 O2 Del Method Room Air 05/09/23 07:57 BMI result Body Mass Index 19.5 Eloped Discharge Plan Discharge Anticipated Discharge Date/Time: 05/09/23 12:01 Patient Disposition: Left Against Medical Advice Discharge Diagnosis: Dizziness Referrals: Joseline Newell MD [Primary Care Provider] - 1 Week Discharge Medications: No Action No Known Home Meds Discharge Orders: Discharge Order (Routine); Ordered 05/09/23 Ordered By: Viki Hartmann Diet: Advance to usual diet Activity on Discharge: As tolerated Care Plan Goals: Vestibular rehab for dizziness Health Concerns: Dizziness Plan of Treatment: Patient eloped prior to being seen by physical therapy for vestibular exercises. Follow-up with primary care provider as needed Take all medications as prescribed Assessment: See discharge summary Discharge Date/Time: 05/09/23 13:25
--- NOTE | 2023-05-09 13:20 | PC.NURSE ---
Patient frustrated with waiting for PT to see him. Patient eloped unit at this time. AMA documentation unable to be obtained. Viki Hartmann MD aware at this time.
--- NOTE | 2023-05-09 13:39 | MHC.CM.PN ---
Pt is medically cleared for D/C home self-care. Pts to transport him home.
== END 2023-05-09 13:25 | disposition left against medical advice (07) ==
LOC: HO.ED 22:19 → HO.EDOVER 23:26 → HO.IMC 05-08 06:01
PROVIDERS: Physician Assistant; Physician Assistant Medical; Admitting Provider Student in an Organized Health Care Education/Training Program; Emergency Provider Emergency Medicine; PCP Internal Medicine; Visit Provider Nurse Practitioner Acute Care
DX: R42 Dizziness and giddiness (principal); E78.5 Hyperlipidemia, unspecified; D72.819 Decreased white blood cell count, unspecified; R94.31 Abnormal electrocardiogram [ECG] [EKG]; R47.81 Slurred speech; H93.19 Tinnitus, unspecified ear; Z72.0 Tobacco use
CPT/HCPCS: 36415; 70450; 70496; 70498; 70551; 80048; 80053; 81003; 83690; 84484; 85025; 93005; 96372; 99222; 99285; J1650; Q9967

== ENCOUNTER → 2023-05-07 15:39 | Outpatient (BNV) | payer OTHER, SELFPAY | PROVIDERS: Emergency Provider Emergency Medicine; PCP Internal Medicine; Visit Provider Student in an Organized Health Care Education/Training Program | DX: R42 Dizziness and giddiness (principal); R94.31 Abnormal electrocardiogram [ECG] [EKG]; Z53.29 Procedure and treatment not carried out because of patient's decision for other reasons | CPT/HCPCS: 99222; 99232; 99238 ==

== ENCOUNTER → 2023-05-07 23:05 | Outpatient (BNV) | payer OTHER, SELFPAY | PROVIDERS: Admitting Provider Student in an Organized Health Care Education/Training Program; Emergency Provider Emergency Medicine; PCP Internal Medicine; Visit Provider Internal Medicine Cardiovascular Disease | DX: R42 Dizziness and giddiness (principal); R94.31 Abnormal electrocardiogram [ECG] [EKG] | CPT/HCPCS: 99222 ==

== ENCOUNTER 2023-06-23 13:04 | Outpatient (AMB) | payer OTHER, SELFPAY ==
--- NOTE | 2023-06-23 13:09 | A.OFFPC_ITS ---
Vital Signs 06/23/23 13:12 Height 6 ft 1 in Weight 151 lb 2 oz BMI 19.9 BP 100/70 Blood Pressure Location Lt brachial Position Sitting Pulse 80 Pulse Source Pulse Oximeter Pulse Oximetry (%) 97 Oxygen Delivery Method Room Air Intake Visit [place] [facility] [place]16 due to imbalance Intake Note: Patient is here for hospital discharge follow up. Patient was discharged [place] [facility] [place]/23. Oyster Shucker Required: No Hostage Negotiator: Not Required per policy Accompanied by: Self / Same As Patient Allergies No Known Allergies Allergy (Verified 06/23/23 13:11) Tobacco use date assessed: 06/23/23 Dental Screening Dental Screen Date: 06/23/23 Did you have a dental visit in the last 12 months?: Yes Did you have a dental problem in the last 6 months where you did not have access to dental care?: No Was dental information given to patient?: Patient has dentist HPI HPI Comments History of Present Illness Details Male past medical history significant for leukopenia, hypercholesteremia. Patient of Dr. Stroud presents today for hospital discharge follow-up. Patient was seen at [facility] for dizziness x1 day with also noted slurring of speech that lasted 3 minutes and gait imbalance denied blurred vision no facial droop. Initially was that possible stroke patient had MRI and head/neck CTA negative for acute abnormalities. Patient was seen by Neurology. History of tinnitus as well as vestibular issues physical therapy was ordered for vestibular therapy however patient eloped prior to having this completed. 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 Patient states dizziness here and there with position changes like bending over. PAtient states he feels it was sleeping on the right side and he will get dizzness that with wake up from a sleep. denies n/v denies ear pain, history of ongoing ringing in both ears times 10 years. [facility] Medical History (Updated 06/23/23 @ 13:27 by JODY Tellez) Tinnitus Leukopenia Pure hypercholesterolemia No pertinent past medical history Surgical History No pertinent past surgical history Family History Mother No problems noted. Father No problems noted. 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 Davie Orta, Marlene Jose, Brendon Mera and colleagues, with an educational aakash from [employer]. Review of Systems Const Denies chills, Denies fatigue, Denies fever(s) and Denies poor appetite Eyes Denies no additional complaints ENT Reports Normal hearing present and Reports dizziness Card Denies chest pain, Denies syncope, Denies rapid heart rate and Denies dyspnea Resp Denies cough and Denies dyspnea GI Denies change in stool character, Denies constipation, Denies diarrhea, Denies nausea and Denies vomiting Denies dysuria, Denies urinary frequency and Denies urinary urgency Neuro Reports Normal hearing present, Denies confusion, Reports dizziness and Denies syncope Psych Denies confusion Endo Denies fatigue Physical exam (Primary Care) Vital Signs: Last Vital Signs Pulse 80 06/23/23 13:12 BP 100/70 06/23/23 13:12 Pulse Ox 97 06/23/23 13:12 Oxygen Delivery Method Room Air 06/23/23 13:12 BMI result Body Mass Index 19.9 Tobacco/Smoking Status: Tobacco use Status Tobacco use date assessed 06/23/23 06/23/23 13:17 Patient Tobacco Use Status Current everyday Tobacco 06/23/23 13:17 Tobacco use type Cigarette 06/23/23 13:17 e-Cigarette/Vaping Use Never Used 11/28/23 13:17 Thrive Assessment: Date of Thrive Assessment Date Thrive assessed 05/08/23 06/23/23 13:17 Const General: No confusion Orientation/consciousness: No confusion HENMT Head: Yes normocephalic and Yes atraumatic Ears: external ears normal and TM's normal bilaterally General nose exam: Normal external nose present and Normal nasal mucous membranes and turbinates present Eyes Conjunctivae: conjunctivae normal Sclerae: sclerae normal Pupils: Equal, round and reactive pupils present and Pupils normal by confrontation EOM: EOMs intact bilaterally Direct Ophthalmoscopy: normal light reflex Chest Chest palpation & inspection: normal inspection of the chest Resp Effort & Inspection: normal respiratory effort Auscultation: clear to auscultation bilaterally, no crackles, no rhonchi and no wheezes Cardio Rate: regular rate Rhythm: regular rhythm Heart sounds: S1 normal heart sound present and S2 normal heart sound present Peripheral pulses: dorsalis pedis present GI Inspection: Yes normal to inspection General: Yes no CVA tenderness Back/Spine/Pelvis Back: no CVA tenderness Neuro General: No confusion Cranial nerves: Yes Equal, round and reactive pupils present and Yes Normal hearing present Cognition (Neuro): normal cognition Gait exam (Neuro): Normal gait present Extrem General: No edema Assessment and Plan Assessment & Plan (1) Vertigo: Code(s): R42 - Dizziness and giddiness Plan: Meclizine 25 mg as needed sent to patient's pharmacy for vertigo. Referral entered for vestibular therapy. Plan Patient advised to schedule physical exam due in January or follow-up sooner if needed. Orders: Orders PT Evaluation and Treatment Today R42 - Dizziness and giddiness Medications: New meclizine 25 mg PO BID PRN 20 tabs 0RF dizziness H93.19 - Tinnitus, unspecified ear, R42 - Dizziness and giddiness Coding Level of Care Code Est Pt Level 3 (98763) Diagnoses Vertigo R42
[2023-06-23 13:12] VITALS: BP 100/70; PULSE 80; O2SAT 97; BMI 19.9
== END 2023-06-23 13:32 | disposition home or self-care (01) ==
PROVIDERS: PCP Internal Medicine; Visit Provider Nurse Practitioner Family
DX: R42 Dizziness and giddiness (principal)
CPT/HCPCS: 99213

== ENCOUNTER 2024-09-27 14:15 | Outpatient (AMB) | payer OTHER, SELFPAY ==
--- NOTE | 2024-09-27 14:25 | A.OFFPC_ITS ---
Vital Signs 09/27/24 14:29 Height 6 ft 1 in Weight 145 lb BMI 19.1 BP 116/78 Blood Pressure Location Lt brachial Position Sitting Intake Visit Reasons: annual exam Intake Note: Patient here for an annual physical exam Radio Station Manager Required: No Accompanied by: Self / Same As Patient Allergies No Known Allergies Allergy (Verified 09/27/24 14:47) Medication List - Last Reconciled 09/27/24 by Joseline Villa MD No Known Home Meds Tobacco use date assessed: 09/27/24 Dental Screening Dental Screen Date: 09/27/24 Did you have a dental visit in the last 12 months?: Yes Did you have a dental problem in the last 6 months where you did not have access to dental care?: No Was dental information given to patient?: Patient has dentist HPI HPI Comments History of Present Illness Details The patient is a 44-year-old male presenting for physical examination and health maintenance. He reports smoking approximately half a pack of cigarettes daily and consumes alcohol on a bi-weekly basis. The patient maintains a BMI of 19, acknowledging weight is slightly lower than average, but he is not inclined to change his dietary habits as he considers his health to be satisfactory. 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 The patient denies significant medical history including surgeries and allergies. He did not receive a flu vaccination this year and has not undergone recent colonoscopies. Family medical history is sparse; he notes his mother is alive but is unaware of her current health issues. - Smoking cessation was discussed but lety chowdhury is not ready to quit. - BMI maintenance was noted, patient is slightly underweight. 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 - Colonoscopy screening was suggested bu t has not been completed. - Discussed yearly influenza vaccination ; patient declined the shot this year. [facility] Medical History Tinnitus Leukopenia Pure hypercholesterolemia No pertinent past medical history Surgical History No pertinent past surgical history Family History Mother No problems noted. Father No problems noted. 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 1. Little interest or pleasure in doing things: not at all 2. Feeling down, depressed, or hopeless: not at all 3. Trouble falling or staying asleep, or sleeping too much: not at all 4. Feeling tired or having little energy: not at all 5. Poor appetite or overeating: not at all 6. Feeling bad about yourself - or that you are a failure or have let yourself or your family down: not at all 7. Trouble concentrating on things, such as reading the newspaper or watching television: not at all 8. Moving or speaking so slowly that other people could have noticed. Or the opposite - being so fidgety or restless that you have been moving around a lot more than usual: not at all 9. Thoughts that you would be better off or of hurting yourself in some way: not at all Total score: 0 Depression Screening Interpretation: Negative Depression Screening Done: Yes 32050 - PHQ-9 Billing: Yes Source: Developed by Drs. Davie Orta, Marlene Jose, Brendon Mera and colleagues, with an educational aakash from [employer]. Thrive Questionnaire Date Thrive assessed: 09/27/24 I am a: Patient What is your living situation today?: I have a steady place to live Within the past 12 months, did the food you bought not last and you didn't have the money to get more?: Never true Within the past 12 months, did you worry whether your food would run out before you got money to buy more?: Never true Do you have trouble paying for medicines?: No Do you have trouble getting transportation to medical appointments?: No Do you have trouble paying your heating and electricity bill?: No Do you have trouble taking care of your child, family member or friend?: No Do you have trouble with day-to-day activities such as bathing, preparing meals, shopping, managing finances, etc.?: No Are you currently unemployed and looking for a job?: No Are you interested in more education?: Yes Please select the resources that you would like help with: Education Currently or been in a relationship where the following occur: No concerns reported THRIVE Score: 0 AUDIT C Alcohol Use Questionnaire (AUDIT-C) 1. How often do you have a drink containing alcohol?: 2-4 times a month 2. How many drinks containing alcohol do you have on a typical day when you are drinking?: 5 or 6 3. How often do you have six or more drinks on one occasion?: Never Total Score: 4 Score Reviewed/Action Taken: No JESSICA-7 AMB Questionnaire JESSICA-7 Date JESSICA - 7 assessed: 09/27/24 Feeling nervous, anxious, or on edge: 0 = Not at all Not being able to stop or control worryin = Not at all Worrying too much about different things: 0 = Not at all Trouble relaxin = Not at all Being so restless that it is hard to sit still: 0 = Not at all Becoming easily annoyed or irritable: 0 = Not at all Feeling afraid as if something awful might happen: 0 = Not at all Total JESSICA-7 score (0-4 normal; 5-9 mild; 10-14 moderate; 15-21 severe): 0 Source: Developed by Drs. Davie Orta, Marlene Jose, Brendon Mera and colleagues, with an educational aakash from [employer]. JESSICA-7 Assessment Billing JESSICA-7 Assessment Tool: JESSICA-7 Assessment 23897 Review of Systems Const All systems reviewed & are unremarkable except as noted in HPI and below Card Denies chest pain at rest, Denies chest pain with activity, Denies edema, Denies irregular heart rhythm, Denies claudication, Denies dyspnea, Denies dyspnea on exertion, Denies orthopnea, Denies paroxysmal nocturnal dyspnea and Denies slow heart rate Resp Denies cough, Denies dyspnea and Denies dyspnea on exertion GI Denies abdominal pain, Denies change in bowel habits, Denies excessive flatus, Denies nausea and Denies vomiting Neuro Denies lack of coordination Physical exam (Primary Care) Vital Signs: Last Vital Signs BP 116/78 09/27/24 14:29 BMI result Body Mass Index 19.1 BMI Assessment/Plan discussion: Low BMI Low, Plan discussed: lifestyle, increase calorie intake and dietary Tobacco/Smoking Status: Tobacco use Status Tobacco use date assessed 09/27/24 09/27/24 14:32 Patient Tobacco Use Status Current everyday Tobacco 09/27/24 14:51 Tobacco use type Cigarette 09/27/24 14:51 e-Cigarette/Vaping Use Never Used 09/27/24 14:51 Are you ready to quit: No Tobacco cessation counseling provided: No PHQ-9: PHQ-9 Score PHQ-9: Total score 0 09/27/24 14:52 Depression Screening Interpretation: Negative Thrive Assessment: Date of Thrive Assessment Date Thrive assessed 09/27/24 09/27/24 14:32 Currently or been in a relationship where the following occur: No concerns reported [facility] General nose exam: Normal external nose present and No nasal discharge present Face and sinus: Yes sinuses nontender Mouth: lip normal Eyes General: appearance normal, both eyes and all related structures Eyelids: Yes eyelids normal Conjunctivae: conjunctivae normal Neck Neck: Yes normal visual inspection and Yes supple Resp Effort & Inspection: normal respiratory effort Auscultation: clear to auscultation bilaterally Cardio Jugular venous distension: no JVD Rate: regular rate Rhythm: regular rhythm Heart sounds: S1 normal heart sound present and S2 normal heart sound present GI Inspection: Yes normal to inspection Palpation (GI): Soft to palpation and nontender Auscultation: normal bowel sounds Skin General skin exam: no rashes or lesions noted Neuro General: no focal motor deficits Extrem General: Yes full ROM Psych Appearance: grossly normal Coding Level of Care Code Est Pt Prev Care 40-64y(80851) Diagnoses Physical exam Z00.00 Additional Codes JESSICA-7 Assessment Billing - JESSICA-7 Assessment Tool: JESSICA-7 Assessment 46546 ([id number]) PHQ-9 - 01508 - PHQ-9 Billing: Yes ([id number]) Time Spent (min) 30 Assessment & Plan Assessment & Plan (1) Physical exam: Code(s): Z00.00 - Encounter for general adult medical examination without abnormal findings Category: Medical Plan During this visit, the focus was on a wellness examination. Discussed tobacco use disorder and its health implications with an emphasis on the benefits of quitting smoking. Although the patient is currently not interested in cessation, it remains an area of concern. Discussed the maintenance of appropriate body mass, especially given the current BMI of 19, which is underweight. 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 I recommended a colonoscopy for colorectal screening and advised obtaining the annual flu shot, both important components of his health maintenance plan. Further discussions will be contingent on the patient's willingness to adjust lifestyle habits. Patient was informed and verbally consented to the use of an ambient scribe for clinic note documentation during this visit. I discussed the importance of quitting smoking and provided insights on potential methods, though the patient expressed no current desire to quit. We went over his underweight status and the benefits of improving nutritional intake, especially with his BMI being 19. I explained the significance of a colonoscopy for colorectal cancer screening and recommended getting the annual flu vaccine. 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 No interventions beyond health maintenance were agreed upon today, and I outlined ongoing attention to his health measures. Orders: Orders Comprehensive [place]. Panel Fast Today Z00.00 - Encounter for general adult medical examination without abnormal findings Lipid Panel Today E78.5 - Hyperlipidemia, unspecified, Z00.00 - Encounter for general adult medical examination without abnormal findings Referrals Open Access Screening Colonoscopy Referral Z12.12 - Encounter for screening for malignant neoplasm of rectum Patient Instructions: - Consider smoking cessation strategies. - Maintain balanced, nutritious meals despite night shifts. - Schedule a colonoscopy for screening. - Keep updated on vaccinations, particularly for the flu. - Monitor weight and consider strategies to reach a healthier BMI.
[2024-09-27 14:29] VITALS: BP 116/78; BMI 19.1
== END 2024-09-27 14:57 | disposition home or self-care (01) ==
PROVIDERS: PCP Internal Medicine; Visit Provider Internal Medicine
DX: Z00.00 Encounter for general adult medical examination without abnormal findings (principal)

== ENCOUNTER 2024-09-27 14:15 | Outpatient (REF) | payer OTHER, SELFPAY ==
[2024-09-27 16:27] LABS: Alanine Aminotransferase 24 U/L (0-40); Albumin Level 4.1 g/dL (3.5-5.0); Alkaline Phosphatase 131 U/L (39-117); Anion Gap 11 (12-20); Aspartate Amino Transferase 21 U/L (5-37); Blood Urea Nitrogen 13 mg/dL (9-16); Calcium 9.4 mg/dL (8.4-10.2); Carbon Dioxide 24 mmol/L (22-29); Chloride 109 mmol/L (96-108); Cholesterol 205 mg/dL (<200); Estimated Glomerular Filt Rate > 60; Glucose Fasting 100 mg/dL (60-99); HDL Cholesterol 52 mg/dL (>40); LDL Cholesterol Calculated 133 mg/dL (<100); Potassium 4.4 mmol/L (3.3-5.1); Sodium 140 mmol/L (135-145); Total Protein 7.5 g/dL (6.5-8.0); Triglycerides 102 mg/dL (<150)
== END 2024-09-27 14:16 | disposition home or self-care (01) ==
LOC: HO.LAB 14:15
PROVIDERS: PCP Internal Medicine; Visit Provider Internal Medicine
DX: Z00.00 Encounter for general adult medical examination without abnormal findings (principal); E78.5 Hyperlipidemia, unspecified; F17.210 Nicotine dependence, cigarettes, uncomplicated; Z71.6 Tobacco abuse counseling
CPT/HCPCS: 36415; 80053; 80061; 96127

== ENCOUNTER 2025-02-21 11:52 | Outpatient (AMB) | payer OTHER, SELFPAY ==
[2025-02-21 13:17] VITALS: BP 96/62; PULSE 74; TEMP 36.4; O2SAT 98
--- NOTE | 2025-02-21 13:17 | AM.OFFWIN_ITS ---
Intake Vital Signs 02/21/25 13:17 02/21/25 13:24 Height 6 ft 1 in BP 96/62 106/72 Blood Pressure Location Rt brachial Lt brachial Position Sitting Sitting Pulse 74 Pulse Source Pulse Oximeter Temp 97.5 F Temp Source Oral Pulse Oximetry (%) 98 Oxygen Delivery Method Room Air Intake Visit Reasons: EP-head/both arms spider bites Intake Note: presents with bumpy, ithy rash to arms and RT forehead - states he was bitten by a spider at home 3 days ago Patient Tobacco Use Status: Current everyday Tobacco user Allergies No Known Allergies Allergy (Verified 02/21/25 13:21) Do you need a note to return to daycare/school/sports/work: No HPI HPI Comments History of Present Illness Details History - The patient is a 44-year-old male pres enting with a spider bite with pruritus. - The incident occurred two to three day s ago while the patient was sleeping at home. - The patient observed the spider a day after the bite and described it as large, clear, and brown. - The primary symptom is intense itching , particularly at night, which has disrupted sleep. - The patient has been applying hydrocor tisone cream for relief, which was started yesterday. - There is no discharge, bleeding, or sy stemic symptoms such as shortness of breath or wheezing. - He denies fever or chills. He denies S OB, wheezing, joint pain, or travel. Physical Exam General: Cooperative, healthy appearing, comfortable, no acute distress and well developed Respiratory: Normal respiratory effort and able to speak in complete sentences. Clear to auscultation bilaterally. No w/r/r noted. Not wheezing, no sore throat. Cardiovascular: RRR, no m/r/g noted. Normal S1 and S2 Skin: Multiple, small raised erythematous bites noted on the right forearm, upper arm, and left upper arm. Patient was informed and verbally consented to the use of an ambient scribe for clinic note documentation during this visit [facility] Medical History Tinnitus Leukopenia Pure hypercholesterolemia No pertinent past medical history Surgical History No pertinent past surgical history Family History Mother No problems noted. Father No problems noted. 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 Current occupational exposures/hazards: No Cognitive needs: No Hearing needs: No Vision needs: No Review of Systems Const All systems reviewed & are unremarkable except as noted in HPI and below Physical Exam Vital Signs: Last Vital Signs Temp 97.5 F 02/21/25 13:17 Pulse 74 02/21/25 13:17 BP 106/72 02/21/25 13:24 Pulse Ox 98 02/21/25 13:17 Oxygen Delivery Method Room Air 02/21/25 13:17 Assessment & Plan Assessment & Plan (1) Insect bites: Code(s): W57.XXXA - Bitten or stung by nonvenomous insect and other nonvenomous arthropods, initial encounter Qualifiers: Encounter type: initial encounter Site of insect bite: forearm Laterality: unspecified laterality Qualified Code(s): S50.869A - Insect bite (nonvenomous) of unspecified forearm, initial encounter; W57.XXXA - Bitten or stung by nonvenomous insect and other nonvenomous arthropods, initial encounter Plan Most likely spider bites Plan - Hydrocortisone cream BID to the area - prednisone burst for 5 days - benadryl as needed for itching - follow up with PCP Medications: New hydrocortisone 2.5% 1 appl topical BID PRN 30 grams 0RF Skin Irritation prednisone 40 mg (2 x 20 mg) PO QAM 10 tabs 0RF Coding Level of Care Code Est Pt Level 3 (82924) Diagnoses Insect bite of forearm, unspecified laterality, initial encounter S50.869A; W57.XXXA Encounter type: initial encounter Site of insect bite: forearm Laterality: unspecified laterality
[2025-02-21 13:24] VITALS: BP 106/72
== END 2025-02-21 14:01 | disposition home or self-care (01) ==
PROVIDERS: PCP Internal Medicine; Visit Provider Physician Assistant Medical
DX: S50.869A Insect bite (nonvenomous) of unspecified forearm, initial encounter (principal); W57.XXXA Bitten or stung by nonvenomous insect and other nonvenomous arthropods, initial encounter